=== PATIENT | male | born 1955 | race Caucasian/White ===

== ENCOUNTER → 2017-11-20 | Outpatient (CLI) | payer MEDICAID ==
[~2017-11-20] MED LIST: ASP81CT PO; AZIT-21 PO; BPR150TCR PO; BUDE6HFA IH; BUSP10TA95 GT; FINA5TAB6 PO; LISI10TA PO; PRED20TA PO; RT-ALBUINH IH; RT-ALBUTEROL SULF 2.5 MG/3 ML PRE-MIX VIAL INH ONE; RT-COMBINH IH; TERA5CAP10 PO; TRAM50TA2 PO; VNL75T PO
== END ==
LOC: RT 12:23
PROVIDERS: ATTEND Nurse Practitioner Family
DX: J44.1 Chronic obstructive pulmonary disease with (acute) exacerbation (principal); R09.02 Hypoxemia; J30.9 Allergic rhinitis, unspecified; R06.02 Shortness of breath
CPT/HCPCS: 94060; 94726; 94729

== ENCOUNTER 2019-01-31 15:43 | Inpatient (IN) | payer MEDICAID ==
[2019-01-31] VITALS (11 sets, daily range): BP systolic 85–159; BP diastolic 50–89
[~2019-01-31] VITALS: Ht 167.6 cm; Wt 61.2 kg
[~2019-01-31 15:43] MED LIST changes: -RT-ALBUTEROL SULF 2.5 MG/3 ML PRE-MIX VIAL INH ONE
--- OUTSIDE RECORDS SUMMARY | 2019-01-31 16:02 | XMS REPORT ---
Author Author Migration, Doctor Organization [facility] Address Unknown Phone Unavailable Care Team Providers Care Farmer General Name Role Phone Migration, Doctor Unavailable Unavailable PROBLEMS Type Condition ICD9-CM Code [id number] Code Onset Dates Condition Status SNOMED Code Problem Chest pain, unspecified 786.50 Active 56783905 Problem Shortness of breath 786.05 Active 532857327 Problem Essential hypertension, benign 401.1 Active 9035811 Problem Unspecified infective otitis externa 380.10 Active 23906905 Problem Memory loss 780.93 Active 33180660 Problem Pain in joint, hand 719.44 Active 999874760 Problem Hypertrophy (benign) of prostate without urinary obstruction and other lower urinary tract symptoms [LUTS] 600.00 Active 341771600 Problem Chronic airway obstruction, not elsewhere classified 496 Active 08446602 ALLERGIES No Information ENCOUNTERS Encounter Location Date Diagnosis [facility] [address] [address] Dec, Skin lesion 709.9 [facility] [id number] [place] [address] Dec, [facility] [id number] [place] [address] Oct, [facility] [id number] [place] [address] Oct, [facility] [id number] [place] [address] Mar, [facility] [address] [address] Dec, [facility] [id number] [place] [address] November, [facility] [address] [address] November, [facility] [address] [id number] [place] [address] Oct, [facility] [address] [id number] [place] [address] Oct, [facility] [address] [facility] [id number] [place] [address] Oct, [facility] [address] [id number] [place] [address] Sep, [facility] [address] [id number] [place] [address] Sep, [facility] [address] [id number] [place] [address] Sep, [facility] [address] [id number] [place] [address] Sep, [facility] [address] [id number] [place] [address] Aug, [facility] [address] [id number] [place] [address] Jul, [facility] [place] [facility] [address] [id number] [place] [address] Jul, [facility] [address] [id number], [place] [address] Jul, [facility] [place] [facility] [address] [id number], [place] [address] Jun, [facility] [place] [facility] [address] [id number] [place] [address] Jun, [facility] [place] [facility] [address] [facility] [id number] [place] [address] May, [facility] [place] [facility] [address] [facility] [id number] [place] [address] May, [facility] [place] [facility] [address] [id number] [place] [address] 27 May, 2012 [facility] [address] [id number] [place] [address] 27 May, 2012 [facility] [address] [id number] [place] [address] 27 May, 2012 [facility] [address] [id number] [place] [address] May, [facility] [address] [id number] [place] [address] May, [facility] [address] [id number] [place] [address] May, [facility] [address] [facility] [id number] [place] [address] May, [facility] [address] [facility] [id number] [place] [address] 14 May, 2012 [facility] [address] [facility] [id number] [place] [address] 14 May, 2012 [facility] [address] [facility] [id number] [place] [address] 13 May, 2012 [facility] [address] [facility] [id number], [place] [address] 13 May, 2012 [facility] [address] [facility] [id number] [place] [address] 10 May, 2012 [facility] [address] [facility] [id number], [place] [address] 10 May, 2012 [facility] [address] [facility] [id number], [place] [address] 10 May, 2012 [facility] [address] [facility] [id number], [place] [address] 10 May, 2012 [facility] [address] [facility] [id number], [place] [address] 14 Mar, 2012 IMMUNIZATIONS No Known Immunizations SOCIAL HISTORY Never Assessed REASON FOR VISIT [facility] [place]AN OF CARE VITAL SIGNS MEDICATIONS No Known Medications RESULTS No Results PROCEDURES No Known procedures INSTRUCTIONS MEDICATIONS ADMINISTERED No Known Medications MEDICAL (GENERAL) HISTORY Type Description Date Medical History hypertension Medical History chronic obstructive pulmonary disease (COPD) Medical History hernia Medical History emphysema Medical History pre-diabetic Medical History cardia Medical History history melanoma Surgical History Coronary angiography-neg 09/2011
--- OUTSIDE RECORDS SUMMARY | 2019-01-31 16:02 | XMS REPORT ---
Author Author Migration, Doctor Organization [facility] Address Unknown Phone Unavailable Care Team Providers Care Crew Caller Name Role Phone Migration, Doctor Unavailable Unavailable PROBLEMS Type Condition ICD9-CM Code [id number]-[id number] Code Onset Dates Condition Status SNOMED Code Problem Chest pain, unspecified 786.50 Active 23051752 Problem Shortness of breath 786.05 Active 078449492 Problem Essential hypertension, benign 401.1 Active 7217289 Problem Unspecified infective otitis externa 380.10 Active 38544340 Problem Memory loss 780.93 Active 94980208 Problem Pain in joint, hand 719.44 Active 270700958 Problem Hypertrophy (benign) of prostate without urinary obstruction and other lower urinary tract symptoms [LUTS] 600.00 Active 442066065 Problem Chronic airway obstruction, not elsewhere classified 496 Active 95035980 ALLERGIES Substance Reaction Event Type Date Status Codeine Unknown Drug Allergy Oct, Active Latex Unknown Non Drug Allergy Oct, Active Penicillins Unknown Non Drug Allergy Oct, Active Ibuprofen Unknown Drug Allergy Oct, Active Morphine Unknown Drug Allergy Oct, Active ENCOUNTERS Encounter Location Date Diagnosis [facility] [id number] [place] [address] Dec, Skin lesion 709.9 [facility] [id number] [place] [address] Dec, [facility] [id number] [place] [address] Oct, [facility] [id number] [place] [address] Oct, [facility] [id number] [place] [address] Mar, [facility] [id number] [place] [address] Dec, [facility] [address] [id number] [place] [address] November, [facility] [address] [id number] [place] [address] November, [facility] [address] [id number] [place] [address] Oct, [facility] [address] [id number] [place] [address] Oct, [facility] [address] [id number] [place] [address] Oct, [facility] [address] [id number] [place] [address] Sep, [facility] [address] [id number] [place] [address] Sep, [facility] [address] [id number] [place] [address] Sep, [facility] [address] [id number] [place] [address] Sep, [facility] [address] [id number] [place] [address] Aug, [facility] [address] [id number] [place] [address] Jul, [facility] [address] [id number] [place] [address] Jul, [facility] [address] [id number] [place] [address] Jul, [facility] [place] [facility] [address] [id number] [place] [address] Jun, [facility] [place] [facility] [address] [id number] [place] [address] Jun, [facility] [address] [id number] [place] [address] May, [facility] [place] [facility] [address] [id number] [place] [address] May, [facility] [place] [facility] [address] [id number] [place] [address] May, [facility] [place] [facility] [address] [id number] [place] [address] May, [facility] [place] [facility] [address] [id number] [place] [address] May, [facility] [place] [facility] [address] [id number] [place] [address] May, [facility] [place] [facility] [address] [id number] [place] [address] May, [facility] [place] [facility] [address] [id number] [place] [address] May, [facility] [place] [facility] [address] [id number] [place] [address] May, [facility] [place] [facility] [address] [id number] [place] [address] 14 May, 2012 [facility] [place] [facility] [address] [id number] [place] [address] 14 May, 2012 [facility] [place] [facility] [address] [id number], [place] [address] 13 May, 2012 [facility] [place] [facility] [address] [id number], [place] [address] 13 May, 2012 [facility] [place] [facility] [address] [id number], [place] [address] 10 May, 2012 [facility] [place] [facility] [address] [id number], [place] [address] 10 May, 2012 [facility] [place] [facility] [address] [id number], [place] [address] 10 May, 2012 [facility] [place] [facility] [address] [facility] [id number] [place] [address] 10 May, 2012 [facility] [address] [facility] [id number] [place] [address] Mar, IMMUNIZATIONS No Known Immunizations SOCIAL HISTORY Never Assessed REASON FOR VISIT [facility] PLAN OF CARE VITAL SIGNS MEDICATIONS Medication Instructions Dosage Frequency Start Date End Date Duration Status Combivent 18-103 mcg/actuation 2 puffs by Inhalation route 4 times per day Oct, Active Guaifenesin 600 mg take 600 mg by Oral route every 12 hours Sep, Active Lisinopril 10 mg take 1 tablet by Oral route 1 time per day Take in am November, Active Omnicef 300 mg 2 capsule by Oral route 1 time per day for 10 day(s) November, Active Flonase 50 mcg/actuation 1 sprays by Nasal route 2 times per day in each nostril November, Active Doxycycline Hyclate 100 mg take 1 tablet by Oral route 2 times per day for 10 days Sep, Active PredniSONE 20 mg take 1 tablet by Oral route 2 times per day for 5 day(s) Sep, Active terazosin 5 mg take 1 capsule (5 mg) by oral route once daily at bedtime November, Active Lovastatin 20 mg take 1 tablet (20 mg) by oral route once daily with the evening meal Aug, Active Aspirin 81 mg take 1 tablet (81 mg) by oral route once daily Aug, Active Ofloxacin 0.3 % 3 drop by Otic route 2 times per day for 10 day(s) Jun, Active Effexor XR 75 mg 1 capsule by Oral route 1 time per day Jun, Active Wellbutrin SR 150 mg 1 Tablet 2 times per day Oct, Active RESULTS No Results PROCEDURES No Known procedures INSTRUCTIONS MEDICATIONS ADMINISTERED No Known Medications MEDICAL (GENERAL) HISTORY Type Description Date Medical History hypertension Medical History chronic obstructive pulmonary disease (COPD) Medical History hernia Medical History emphysema Medical History pre-diabetic Medical History cardia Medical History history melanoma Surgical History Coronary angiography-neg 09/2011
--- OUTSIDE RECORDS SUMMARY | 2019-01-31 16:02 | XMS REPORT ---
Author Author Migration, Doctor Organization [facility] Address Unknown Phone Unavailable Care Team Providers Care Registered Midwife Name Role Phone Migration, Doctor Unavailable Unavailable PROBLEMS Type Condition ICD9-CM Code [id number] Code Onset Dates Condition Status SNOMED Code Problem Chest pain, unspecified 786.50 Active 08409970 Problem Shortness of breath 786.05 Active 905867688 Problem Essential hypertension, benign 401.1 Active 5093398 Problem Unspecified infective otitis externa 380.10 Active 28349952 Problem Memory loss 780.93 Active 84876162 Problem Pain in joint, hand 719.44 Active 570232369 Problem Hypertrophy (benign) of prostate without urinary obstruction and other lower urinary tract symptoms [LUTS] 600.00 Active 001878414 Problem Chronic airway obstruction, not elsewhere classified 496 Active 81112472 ALLERGIES No Information ENCOUNTERS Encounter Location Date Diagnosis [facility] [address] [address] Dec, Skin lesion 709.9 [facility] [id number] [place] [address] Dec, [facility] [id number] [place] [address] Oct, [facility] [id number] [place] [address] Oct, [facility] [id number] [place] [address] Mar, [facility] [address] [address] Dec, [facility] [id number] [place] [address] November, [facility] [address] [address] November, [facility] [address] [id number] [place] [address] Oct, [facility] [address] [id number] [place] [address] Oct, [facility] [address] [facility] [id number] [place] [address] Oct, [facility] [address] [id number] [place] [address] Sep, [facility] [address] [id number] [place] [address] Sep, [facility] [address] [id number] [place] [address] Sep, [facility] [address] [id number] [place] [address] Sep, [facility] [address] [id number] [place] [address] Aug, [facility] [address] [id number] [place] [address] Jul, [facility] [place] [facility] [address] [id number] [place] [address] Jul, [facility] [address] [id number], [place] [address] Jul, [facility] [place] [facility] [address] [id number], [place] [address] Jun, [facility] [place] [facility] [address] [id number] [place] [address] Jun, [facility] [place] [facility] [address] [facility] [id number] [place] [address] May, [facility] [place] [facility] [address] [facility] [id number] [place] [address] May, [facility] [place] [facility] [address] [id number] [place] [address] 27 May, 2012 [facility] [address] [id number] [place] [address] 27 May, 2012 [facility] [address] [id number] [place] [address] 27 May, 2012 [facility] [address] [id number] [place] [address] May, [facility] [address] [id number] [place] [address] May, [facility] [address] [id number] [place] [address] May, [facility] [address] [facility] [id number] [place] [address] May, [facility] [address] [facility] [id number] [place] [address] 14 May, 2012 [facility] [address] [facility] [id number] [place] [address] 14 May, 2012 [facility] [address] [facility] [id number] [place] [address] 13 May, 2012 [facility] [address] [facility] [id number], [place] [address] 13 May, 2012 [facility] [address] [facility] [id number] [place] [address] 10 May, 2012 [facility] [address] [facility] [id number], [place] [address] 10 May, 2012 [facility] [address] [facility] [id number], [place] [address] 10 May, 2012 [facility] [address] [facility] [id number], [place] [address] 10 May, 2012 [facility] [address] [facility] [id number], [place] [address] 14 Mar, 2012 IMMUNIZATIONS No Known Immunizations SOCIAL HISTORY Never Assessed REASON FOR VISIT EMR-[facility] PLAN OF CARE VITAL SIGNS MEDICATIONS No [...]
--- OUTSIDE RECORDS SUMMARY | 2019-01-31 16:04 | XMS REPORT | Continuity of Care Document ---
Demographics Preferred Language Unknown Marital Status Unknown Gnosticism Affiliation Unknown Race Unknown Ethnic Group Unknown Author Organization Unknown Address Unknown Allergies Active Description Code Type Severity Reaction Onset Reported/Identified Relationship to Patient Clinical Status Yes CODEINE SULFATE SEVERE OTHER Yes CODEINE SULFATE SEVERE SEVERE Yes LATEX, NATURAL RUBBER UNKNOWN DERMATOLOGICAL - HIV Yes LATEX, NATURAL RUBBER UNKNOWN UNKNOWN Yes MORPHINE SEVERE OTHER Yes MORPHINE SEVERE SEVERE Yes NSAIDS (NON-STEROIDAL ANTI-INFLAMMATORY DRUG) UNKNOWN OTHER Yes NSAIDS (NON-STEROIDAL ANTI-INFLAMMATORY DRUG) UNKNOWN UNKNOWN Yes PENICILLINS UNKNOWN GI PROBLEMS - VOMITI Yes PENICILLINS UNKNOWN UNKNOWN Yes Codeine Drug Allergy N/A N/A 06/05/2012 Yes ibuprofen Drug Allergy N/A N/A 06/05/2012 Yes morphine Drug Allergy N/A N/A 06/05/2012 Yes Penicillins Drug Allergy N/A N/A 06/05/2012 Yes Codeine Drug Allergy 06/05/2012 Yes ibuprofen Drug Allergy 06/05/2012 Yes morphine Drug Allergy 06/05/2012 Yes Penicillins Drug Allergy 06/05/2012 Yes LATEX Drug Allergy 08/11/2012 Yes codeine [id number] Drug Allergy Unknown N/A 11/20/2017 Yes ibuprofen [id number] Drug Allergy Unknown N/A 11/20/2017 Yes latex [id number] Drug Allergy Unknown N/A 11/20/2017 Yes morphine morphine Unknown N/A 11/20/2017 Yes Penicillins [id number] Drug Allergy Unknown N/A 11/20/2017 Medications Medication Packaging Start Date Stop Date Route Dosage Sig TUBERCULIN PPD INJ 0 (TUBERSOL) ml 06/09/2017 06/09/2017 ONCE&1928 BUDESONIDE/FORMOTEROL INH 160 /4.5MCG (SYMBICORT) PUFF 06/09/2017 06/16/2017 BID&0800,2000 TERAZOSIN CAP 5 MG (HYTRIN) MG 06/09/2017 06/15/2017 QHS&2100 BUSPIRONE TAB 5 MG (BUSPAR) MG 06/09/2017 06/09/2017 ONCE&2200 CEFEPIME PREMIX BAG IV 1 GM/50CC (MAXIPIME PREMIX BAG) GM 06/09/2017 06/16/2017 Q8H&0600,1400,2200 ALBUTEROL INHALER MDI 8 GM (VENTOLIN HFA) PUFF(S) 06/09/2017 06/19/2017 PRN QID BUSPIRONE TAB 5 MG (BUSPAR) MG 06/10/2017 06/16/2017 BID&0800,2000 IPRATROPIUM/ALBUTEROL INH SOLN (DUO-NEB INH SOLN) MLS 06/10/2017 06/10/2017 ONCE&0800 PANTOPRAZOLE TAB 20 MG (PROTONIX) MG 06/10/2017 06/16/2017 Daily&0900 LISINOPRIL TAB 10 MG (ZESTRIL) MG 06/10/2017 06/16/2017 Daily&0900 FLUTICASONE NASAL INHALER MDI 50 MCG (FLONASE NOSE SPRAY) PUFF(S) 06/10/2017 06/16/2017 Daily&0900 LEVOFLOXACIN PREMIX IV BAG INJ 750 MG (LEVAQUIN PREMIX IV BAG) MG 06/10/2017 06/16/2017 Daily&0900 CETIRIZINE TAB 10 MG (ZYRTEC) MG 06/10/2017 06/16/2017 Daily&0900 TIOTROPIUM CAP 18 MCG (SPIRIVA) MCG 06/10/2017 06/16/2017 Daily&0900 IPRATROPIUM/ALBUTEROL INH SOLN (DUO-NEB INH SOLN) MLS 06/10/2017 06/14/2017 Q4H&0200,0600,1000,1400,1800,2200 IPRATROPIUM/ALBUTEROL INH SOLN (DUO-NEB INH SOLN) MLS 06/10/2017 06/17/2017 QID&0600,1100,1600,2100 NORMAL SALINE 250CC IV BAG INJ 0.9 % (NS 250CC IV BAG) ml 06/10/2017 06/12/2017 Daily&0900,2000 MONTELUKAST TAB 10 MG (SINGULAIR) MG 06/10/2017 06/16/2017 Daily&2100 BUSPIRONE TAB 5 MG (BUSPAR) MG 06/11/2017 06/17/2017 BID&08,1999 TERAZOSIN CAP 5 MG (HYTRIN) MG 06/11/2017 06/17/2017 BID&799,1999 BUDESONIDE/FORMOTEROL INH 160 /4.5MCG (SYMBICORT) PUFF 06/11/2017 06/17/2017 BID&08,1999 LISINOPRIL TAB 10 MG (ZESTRIL) MG 06/11/2017 06/17/2017 Daily&0900 FLUTICASONE NASAL INHALER MDI 50 MCG (FLONASE NOSE SPRAY) PUFF(S) 06/11/2017 06/17/2017 Daily&0900 CETIRIZINE TAB 10 MG (ZYRTEC) MG 06/11/2017 06/17/2017 Daily&0900 MONTELUKAST TAB 10 MG (SINGULAIR) MG 06/11/2017 06/17/2017 QHS&2100 CEFEPIME PREMIX BAG IV 1 GM/50CC (MAXIPIME PREMIX BAG) GM 06/12/2017 06/12/2017 ONCE&1400 CEFEPIME VIAL INJ 2 GM (MAXIPIME VIAL) GM 06/12/2017 06/22/2017 Q8H&0600,1400,2200 ACETAMINOPHEN ORAL TABLET 325mg(Tylenol) MG 06/13/2017 06/23/2017 PRN EVERY 4 Hour DIPHENHYDRAMINE CAP 25 MG (BENADRYL) MG 06/13/2017 06/16/2017 PRN QHS METHYLPREDNISOLONE VIAL INJ 125 MG/2CC (SOLU-MEDROL VIAL) MG 01/30/2019 01/30/2019 ONCE&0715 ALBUTEROL SVN 2.5MG/3CC LIQ 2.5 MG (PROVENTIL ELIGIO 2.5MG/3CC) MG 01/30/2019 01/30/2019 ONCE&0721 IPRATROPIUM/ALBUTEROL INH SOLN (DUO-NEB INH SOLN) MLS 01/31/2019 01/31/2019 ONCE&1047 METHYLPREDNISOLONE VIAL INJ 125 MG/2CC (SOLU-MEDROL VIAL) MG 01/31/2019 01/31/2019 ONCE&1047 LORAZEPAM 1CC VIAL INJ 2 MG/CC (ATIVAN VIAL) MG 01/31/2019 01/31/2019 ONCE&1101 NORMAL SALINE 250CC IV BAG INJ 0.9 % (NS 250CC IV BAG) ml 01/31/2019 01/31/2019 ONCE&1232 CEFEPIME PREMIX BAG IV 1 GM/50CC (MAXIPIME PREMIX BAG) GM 01/31/2019 01/31/2019 ONCE&1232 Problems Date Dx Coded Attending Type Code Diagnosis Diagnosed By 06/05/2012 NEREYDA OLIVAS DO 461.9 Sinusitis Acute 06/05/2012 RACHAEL OLIVAS DOA K 466.0 Bronchitis, Acute 06/05/2012 DEISY SERRANO NEREYDA K 496 CHRONIC AIRWAY OBSTRUCTION NOT ELSEWHERE CLASSIFIED 06/05/2012 DEISY SERRANO NEREYDA K 719.44 PAIN IN JOINT INVOLVING HAND 06/05/2012 RACHAEL OLIVAS DOA K V70.0 ROUTINE GENERAL MEDICAL EXAMINATION AT A HEALTH CARE FACILITY 06/05/2012 NEREYDA OLIVAS DO 461.9 Sinusitis Acute 06/05/2012 RACHAEL OLIVAS DOA K 466.0 Bronchitis, Acute 06/05/2012 RACHAEL OLIAVS DOA K 496 CHRONIC AIRWAY OBSTRUCTION NOT ELSEWHERE CLASSIFIED 06/05/2012 RACHAEL OLIVAS DOA K 719.44 PAIN IN JOINT INVOLVING HAND 06/05/2012 DEISY SERRANO NEREYDA K V70.0 ROUTINE GENERAL MEDICAL EXAMINATION AT A HEALTH CARE FACILITY 06/05/2012 RACHAEL OLIVAS DOA Adelina 461.9 Sinusitis Acute 06/05/2012 DEISY SERRANO NEREYDA K 466.0 Bronchitis, Acute 06/05/2012 DEISY SERRANO NEREYDA K 496 CHRONIC AIRWAY OBSTRUCTION NOT ELSEWHERE CLASSIFIED 06/05/2012 RACHAEL OLIVAS DOA K 719.44 PAIN IN JOINT INVOLVING HAND 06/05/2012 DEISY SERRANO NEREYDA K V70.0 ROUTINE GENERAL MEDICAL EXAMINATION AT A HEALTH CARE FACILITY 06/05/2012 RACHAEL OLIVAS DOA K 461.9 Sinusitis Acute 06/05/2012 DEISY SERRANO NEREYDA K 466.0 Bronchitis, Acute 06/05/2012 DEISY SERRANO NEREYDA K 496 CHRONIC AIRWAY OBSTRUCTION NOT ELSEWHERE CLASSIFIED 06/05/2012 DEISY SERRANO NEREYDA K 719.44 PAIN IN JOINT INVOLVING HAND 06/05/2012 DEISY SERRANO NEREYDA K V70.0 ROUTINE GENERAL MEDICAL EXAMINATION AT A HEALTH CARE FACILITY 06/05/2012 DUDLEY DAWSON APRN 461.9 Sinusitis Acute 06/05/2012 EUNICE STUARTNKANON M 466.0 Bronchitis, Acute 06/05/2012 EUNICE STUARTN, DUDLEY M 496 CHRONIC AIRWAY OBSTRUCTION NOT ELSEWHERE CLASSIFIED 06/05/2012 EUNICE STUARTN DUDLEY M 719.44 PAIN IN JOINT INVOLVING HAND 06/05/2012 DUDLEY DAWSON APRN V70.0 ROUTINE GENERAL MEDICAL EXAMINATION AT A HEALTH CARE FACILITY 06/05/2012 OLIVAS DO, NEREYDA K 461.9 Sinusitis Acute 06/05/2012 OLIVAS DO, NERYEDA K 466.0 Bronchitis, Acute 06/05/2012 OLIVAS DO, NEREYDA K 496 CHRONIC AIRWAY OBSTRUCTION NOT ELSEWHERE CLASSIFIED 06/05/2012 OLIVAS DO, NEREYDA K 719.44 PAIN IN JOINT INVOLVING HAND 06/05/2012 OLIVAS DO, NEREYDA K V70.0 ROUTINE GENERAL MEDICAL EXAMINATION AT A HEALTH CARE FACILITY 06/05/2012 461.9 Sinusitis Acute 06/05/2012 466.0 Bronchitis, Acute 06/05/2012 496 CHRONIC AIRWAY OBSTRUCTION NOT ELSEWHERE CLASSIFIED 06/05/2012 719.44 PAIN IN JOINT INVOLVING HAND 06/05/2012 V70.0 ROUTINE GENERAL MEDICAL EXAMINATION AT A HEALTH CARE FACILITY 06/05/2012 MADL EARLY CHILDHOOD EDUCATION WORKER, JAMIR L 461.9 Sinusitis Acute 06/05/2012 MADL EARLY CHILDHOOD EDUCATION WORKER, JAMIR L 466.0 Bronchitis, Acute 06/05/2012 MADL EARLY CHILDHOOD EDUCATION WORKER, JAMIR L 496 CHRONIC AIRWAY OBSTRUCTION NOT ELSEWHERE CLASSIFIED 06/05/2012 MADL EARLY CHILDHOOD EDUCATION WORKER, JAMIR L 719.44 PAIN IN JOINT INVOLVING HAND 06/05/2012 MADL EARLY CHILDHOOD EDUCATION WORKER, JMAIR L V70.0 ROUTINE GENERAL MEDICAL EXAMINATION AT A HEALTH CARE FACILITY 06/21/2012 OLIVAS DO, NEREYDA K 786.05 SHORTNESS OF BREATH 06/21/2012 OLIVAS DO, NEREYDA K 786.50 CHEST PAIN 06/21/2012 OLIVAS DO, NEREYDA K 786.05 Shortness Of Breath 06/21/2012 OLIVAS DO, ENREYDA K 786.50 CHEST PAIN 06/21/2012 OLIVAS DO, NEREYDA K 786.05 Shortness Of Breath 06/21/2012 OLIVAS DO, NEREYDA K 786.50 CHEST PAIN 06/21/2012 OLIVAS DO, NEREYDA K 786.05 Shortness Of Breath 06/21/2012 OLIVAS DO, NEREYDA K 786.50 CHEST PAIN 06/21/2012 DAWSON EARLY CHILDHOOD EDUCATION WORKER, DUDLEY M 786.05 Shortness Of Breath 06/21/2012 DAWSON EARLY CHILDHOOD EDUCATION WORKER, DUDLEY M 786.50 CHEST PAIN 06/21/2012 OLIVAS DO, NEREYDA K 786.05 Shortness Of Breath 06/21/2012 OLIVAS DO, NEREYDA K 786.50 Chest Pain 06/21/2012 786.05 Shortness Of Breath 06/21/2012 786.50 Chest Pain 06/21/2012 MADL EARLY CHILDHOOD EDUCATION WORKER, JAMIR L 786.05 Shortness Of Breath 06/21/2012 MADL EARLY CHILDHOOD EDUCATION WORKER, JAMIR L 786.50 Chest Pain 07/02/2012 OLIVAS DO, NEREYDA K 380.10 INFECTIVE OTITIS EXTERNA UNSPECIFIED 07/02/2012 OLIVAS DO, NEREYDA K 401.1 HYPERTENSION, BENIGN ESSENTIAL 07/02/2012 OLIVAS DO, NEREYDA K 600.00 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 AND OTHER LOWER URINARY TRACT SYMPTOMS (LUTS) 07/02/2012 OLIVAS DO, NEREYDA K 790.95 ELEVATED C-REACTIVE PROTEIN (CRP) 07/02/2012 OLIAVS DO, NEREYDA K 799.22 IRRITABILITY 07/02/2012 OLIVAS DO, NEREYDA K 380.10 INFECTIVE OTITIS EXTERNA UNSPECIFIED 07/02/2012 OLIVAS DO, NEREYDA K 401.1 HYPERTENSION, BENIGN ESSENTIAL 07/02/2012 OLIVAS DO, NEREYDA K 600.00 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 AND OTHER LOWER URINARY TRACT SYMPTOMS (LUTS) 07/02/2012 OLIVAS DO, NEREYDA K 790.95 ELEVATED C-REACTIVE PROTEIN (CRP) 07/02/2012 OLIVAS DO, NEREYDA K 799.22 IRRITABILITY 07/02/2012 OLIVAS DO, NEREYDA K 380.10 INFECTIVE OTITIS EXTERNA UNSPECIFIED 07/02/2012 OLIVAS DO, NEREYDA K 401.1 HYPERTENSION, BENIGN ESSENTIAL 07/02/2012 OLIVAS DO, NEREYDA K 600.00 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 AND OTHER LOWER URINARY TRACT SYMPTOMS (LUTS) 07/02/2012 OLIVAS DO, NEREYDA K 790.95 ELEVATED C-REACTIVE PROTEIN (CRP) 07/02/2012 OLIVAS DO, NEREYDA K 799.22 IRRITABILITY 07/02/2012 DUDLEY DAWSON APRN M 380.10 INFECTIVE OTITIS EXTERNA UNSPECIFIED 07/02/2012 DUDLEY DAWSON APRN 401.1 HYPERTENSION, BENIGN ESSENTIAL 07/02/2012 DUDLEY DAWSON APRN 600.00 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 AND OTHER LOWER URINARY TRACT SYMPTOMS (LUTS) 07/02/2012 EUNICE STUARTGema DUDLEY M 790.95 ELEVATED C-REACTIVE PROTEIN (CRP) 07/02/2012 DUDLEY DAWSON APRN Anton 799.22 IRRITABILITY 07/02/2012 RACHAEL OLIVAS DOA K 380.10 Infective Otitis Externa Unspecified 07/02/2012 RACHAEL OLIVAS DOA K 401.1 HYPERTENSION, BENIGN ESSENTIAL 07/02/2012 RACHAEL OLIVAS DOA K 600.00 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1 HYPERTENSION, BENIGN ESSENTIAL 07/02/2012 CHRISTOPH STUARTNTINOA L 600.00 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 AND OTHER LOWER URINARY TRACT SYMPTOMS (LUTS) 07/02/2012 CHRISTOPH STUARTGema JAMIR L 790.95 ELEVATED C-REACTIVE PROTEIN (CRP) 07/02/2012 APRYL HAWTHORNE APRNNYA L 799.22 IRRITABILITY 09/10/2012 Ot 401.9 HYPERTENSION NOS 09/10/2012 Ot 496 CHR AIRWAY OBSTRUCT NEC 09/10/2012 Ot 600.00 HYPERTROPHY (BENIGN) OF PROSTATE W/O URI 09/10/2012 Ot 786.59 CHEST PAIN NEC 09/10/2012 Ot 790.95 ELEVATED C-REACTIVE PROTEIN (CRP) 09/10/2012 Ot 794.30 ABN CARDIOVASC STUDY NOS 09/10/2012 Ot V58.69 OTH MED,LT,CURRENT USE 10/07/2012 DEISY NEREYDA SERRANO K 703.0 NAIL INGROWN 10/07/2012 DUDLEY DAWSON APRN 703.0 NAIL INGROWN 10/07/2012 DEISY SERRANONEREYDA K 703.0 NAIL INGROWN 10/07/2012 703.0 NAIL INGROWN 10/07/2012 CHRISTOPH STUARTN, JAMIR L 703.0 NAIL INGROWN 10/22/2012 DUDLEY DAWSON APRN 466.0 BRONCHITIS, ACUTE 10/22/2012 NEREYDA OLIVAS DO K 466.0 Bronchitis, Acute 10/22/2012 466.0 Bronchitis, Acute 10/22/2012 MADL EARLY CHILDHOOD EDUCATION WORKER, JAMIR L 466.0 Bronchitis, Acute 11/01/2012 OLIVAS NEREYDA SERRANO K 780.93 MEMORY LOSS 11/01/2012 780.93 MEMORY LOSS 11/01/2012 MADL EARLY CHILDHOOD EDUCATION WORKER, JAMIR L 780.93 MEMORY LOSS 12/03/2012 381.81 EUSTACHIAN TUBE DYSFUNCTION 12/03/2012 388.70 OTALGIA 12/03/2012 MADL EARLY CHILDHOOD EDUCATION WORKER, JAMIR L 381.81 EUSTACHIAN TUBE DYSFUNCTION 12/03/2012 MADL EARLY CHILDHOOD EDUCATION WORKER, JAMIR L 388.70 OTALGIA 11/14/2014 MADL EARLY CHILDHOOD EDUCATION WORKER, JAMIR L 709.9 UNSPECIFIED DISORDER OF SKIN AND SUBCUTANEOUS TISSUE 12/19/2014 JASMYNE MARTIN, RADHA Ward Ot 491.22 OBSTRUCTIVE CHRONIC BRONCHITIS WITH ACUT 12/19/2014 RADHA MEDLEY MD Ot 492.0 EMPHYSEMATOUS BLEB 12/19/2014 RADHA MEDLEY MD Ot 786.05 SHORTNESS OF BREATH 02/14/2015 ELSA MATTHEW EARLY CHILDHOOD EDUCATION WORKER Ot 477.9 02/14/2015 ELSA MATTHEW EARLY CHILDHOOD EDUCATION WORKER Ot 493.22 03/13/2015 ELSA MATTHEW EARLY CHILDHOOD EDUCATION WORKER Ot 477.9 03/13/2015 ELSA MATTHEW EARLY CHILDHOOD EDUCATION WORKER Ot 493.22 04/25/2015 ELSA MATTHEW EARLY CHILDHOOD EDUCATION WORKER Ot 477.9 ALLERGIC RHINITIS NOS 04/25/2015 ELSA MATTHEW EARLY CHILDHOOD EDUCATION WORKER Ot 493.22 CHRONIC OBSTRUCTIVE ASTHMA, W (ACUTE) EX 06/09/2017 CALI, RONY A 482.1 PNEUMONIA DUE TO PSEUDOMONAS 06/09/2017 RONY CALI A J15.1 PNEUMONIA DUE TO PSEUDOMONAS 06/09/2017 RONY CALI A 482.1 PNEUMONIA DUE TO PSEUDOMONAS 06/09/2017 CALIRONY ZAMAN A J15.1 PNEUMONIA DUE TO PSEUDOMONAS 06/10/2017 RONY CALI A 486 PNEUMONIA, ORGANISM UNSPECIFIED 06/10/2017 CALIRONY ZAMAN A J18.1 LOBAR PNEUMONIA, UNSPECIFIED ORGANISM 06/10/2017 RONY CALI A 486 PNEUMONIA, ORGANISM UNSPECIFIED 06/10/2017 RONY CALI W 496 CHRONIC AIRWAY OBSTRUCTION, NOT ELSEWHERE CLASSIFIED 06/10/2017 RONY CALI A J18.1 LOBAR PNEUMONIA, UNSPECIFIED ORGANISM 06/10/2017 RONY CALI J44.9 CHRONIC OBSTRUCTIVE PULMONARY DISEASE, UNSPECIFIED 06/11/2017 RONY CALI A 486 PNEUMONIA, ORGANISM UNSPECIFIED 06/11/2017 RONY CALI W 496 CHRONIC AIRWAY OBSTRUCTION, NOT ELSEWHERE CLASSIFIED 06/11/2017 RONY CALI A J18.1 LOBAR PNEUMONIA, UNSPECIFIED ORGANISM 06/11/2017 RONY CALI J44.9 CHRONIC OBSTRUCTIVE PULMONARY DISEASE, UNSPECIFIED 06/13/2017 RONY CALI W 401.0 06/13/2017 RONY CALI A 486 PNEUMONIA, ORGANISM UNSPECIFIED 06/13/2017 RONY CALI W 496 CHRONIC AIRWAY OBSTRUCTION, NOT ELSEWHERE CLASSIFIED 06/13/2017 RONY CALI W I10 ESSENTIAL (PRIMARY) HYPERTENSION 06/13/2017 RONY CALI A J18.1 LOBAR PNEUMONIA, UNSPECIFIED ORGANISM 06/13/2017 RONY CALI J44.9 CHRONIC OBSTRUCTIVE PULMONARY DISEASE, UNSPECIFIED 06/13/2017 RONY CALI W V15.82 PERSONAL HISTORY OF TOBACCO USE 06/13/2017 RONY CALI Z87.891 PERSONAL HISTORY OF NICOTINE DEPENDENCE 06/17/2017 RONY CALI 482.1 PNEUMONIA DUE TO PSEUDOMONAS 06/17/2017 RONY CALI W 496 CHRONIC AIRWAY OBSTRUCTION, NOT ELSEWHERE CLASSIFIED 06/17/2017 RONY CALI J15.1 PNEUMONIA DUE TO PSEUDOMONAS 06/17/2017 RONY CALI J44.9 CHRONIC OBSTRUCTIVE PULMONARY DISEASE, UNSPECIFIED 06/17/2017 CALI RONY W 482.1 PNEUMONIA DUE TO PSEUDOMONAS 06/17/2017 CALI, RONY W 496 CHRONIC AIRWAY OBSTRUCTION, NOT ELSEWHERE CLASSIFIED 06/17/2017 CALI, RONY W J15.1 PNEUMONIA DUE TO PSEUDOMONAS 06/17/2017 CALI RONY W J44.9 CHRONIC OBSTRUCTIVE PULMONARY DISEASE, UNSPECIFIED 06/22/2017 CALI RONY W 482.1 PNEUMONIA DUE TO PSEUDOMONAS 06/22/2017 CALI, RONY W 496 CHRONIC AIRWAY OBSTRUCTION, NOT ELSEWHERE CLASSIFIED 06/22/2017 CALI RONY W J15.1 PNEUMONIA DUE TO PSEUDOMONAS 06/22/2017 CALI, RONY W J44.9 CHRONIC OBSTRUCTIVE PULMONARY DISEASE, UNSPECIFIED 06/22/2017 CALI, RONY W 482.1 PNEUMONIA DUE TO PSEUDOMONAS 06/22/2017 CALI, RONY W 496 CHRONIC AIRWAY OBSTRUCTION, NOT ELSEWHERE CLASSIFIED 06/22/2017 CALI, RONY W J15.1 PNEUMONIA DUE TO PSEUDOMONAS 06/22/2017 CALI, RONY W J44.9 CHRONIC OBSTRUCTIVE PULMONARY DISEASE, UNSPECIFIED 07/17/2017 CALI, RONY A 482.1 PNEUMONIA DUE TO PSEUDOMONAS 07/17/2017 CALI, RONY W 496 CHRONIC AIRWAY OBSTRUCTION, NOT ELSEWHERE CLASSIFIED 07/17/2017 CALI, RONY A J15.1 PNEUMONIA DUE TO PSEUDOMONAS 07/17/2017 CALI, RONY W J44.9 CHRONIC OBSTRUCTIVE PULMONARY DISEASE, UNSPECIFIED 07/17/2017 CALI, RONY A 482.1 PNEUMONIA DUE TO PSEUDOMONAS 07/17/2017 CALI, RONY W 496 CHRONIC AIRWAY OBSTRUCTION, NOT ELSEWHERE CLASSIFIED 07/17/2017 CALI, RONY A J15.1 PNEUMONIA DUE TO PSEUDOMONAS 07/17/2017 CALI, RONY W J44.9 CHRONIC OBSTRUCTIVE PULMONARY DISEASE, UNSPECIFIED 07/17/2017 CALI, RONY A 482.1 PNEUMONIA DUE TO PSEUDOMONAS 07/17/2017 CALI, RONY W 496 CHRONIC AIRWAY OBSTRUCTION, NOT ELSEWHERE CLASSIFIED 07/17/2017 CALI, RONY A J15.1 PNEUMONIA DUE TO PSEUDOMONAS 07/17/2017 CALI, RONY W J44.9 CHRONIC OBSTRUCTIVE PULMONARY DISEASE, UNSPECIFIED 11/09/2017 Christen Walton W 031.0 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 11/09/2017 Christen Walton A31.0 PULMONARY MYCOBACTERIAL INFECTION 11/09/2017 Christen Walton W 031.0 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 11/09/2017 Christen Walton A31.0 PULMONARY MYCOBACTERIAL INFECTION 11/18/2017 Ot 414.9 CHR ISCHEMIC HRT DIS NOS 11/18/2017 Ot 786.50 CHEST PAIN NOS 11/18/2017 Ot 397.0 TRICUSPID VALVE DISEASE 11/18/2017 Ot 416.8 CHR PULMON HEART DIS NEC 11/18/2017 Ot 424.0 MITRAL VALVE DISORDER 11/18/2017 Ot 786.50 CHEST PAIN NOS 11/18/2017 SUKHI MATTHEWINE E EARLY CHILDHOOD EDUCATION WORKER Ot 477.9 ALLERGIC RHINITIS NOS 11/18/2017 SUKHI MATTHEWINE E EARLY CHILDHOOD EDUCATION WORKER Ot 493.22 CHRONIC OBSTRUCTIVE ASTHMA, W (ACUTE) EX 11/23/2017 SUKHI MATTHEWINE E EARLY CHILDHOOD EDUCATION WORKER Ot J30.9 ALLERGIC RHINITIS, UNSPECIFIED 11/23/2017 ELSA MATTHEW EARLY CHILDHOOD EDUCATION WORKER Ot J44.1 CHRONIC OBSTRUCTIVE PULMONARY DISEASE W 11/23/2017 ELSA MATTHEW EARLY CHILDHOOD EDUCATION WORKER Ot R06.02 SHORTNESS OF BREATH 11/23/2017 SUKHI MATTHEWINE E EARLY CHILDHOOD EDUCATION WORKER Ot R09.02 HYPOXEMIA 12/04/2017 SUKHI MATTHEWINE Shabbir EARLY CHILDHOOD EDUCATION WORKER Ot J30.9 ALLERGIC RHINITIS, UNSPECIFIED 12/04/2017 ELSA MATTHEW EARLY CHILDHOOD EDUCATION WORKER Ot J44.1 CHRONIC OBSTRUCTIVE PULMONARY DISEASE W 12/04/2017 ELSA MATTHEW EARLY CHILDHOOD EDUCATION WORKER Ot R06.02 SHORTNESS OF BREATH 12/04/2017 ELSA MATTHEW EARLY CHILDHOOD EDUCATION WORKER Ot R09.02 HYPOXEMIA 01/13/2018 RONY CALI 031.9 UNSPECIFIED DISEASES DUE TO MYCOBACTERIA 01/13/2018 RONY CALI A31.8 OTHER MYCOBACTERIAL INFECTIONS 01/13/2018 RONY CALI V70.0 ROUTINE GENERAL MEDICAL EXAMINATION AT A HEALTH CARE FACILITY 01/13/2018 RONY CALI Z00.01 ENCOUNTER FOR GENERAL ADULT MEDICAL EXAMINATION WITH ABNORMAL FINDINGS 01/13/2018 RONY CALI 031.9 UNSPECIFIED DISEASES DUE TO MYCOBACTERIA 01/13/2018 RONY CALI A31.8 OTHER MYCOBACTERIAL INFECTIONS 01/13/2018 RONY CALI V70.0 ROUTINE GENERAL MEDICAL EXAMINATION AT A HEALTH CARE FACILITY 01/13/2018 RONY CALI Z00.01 ENCOUNTER FOR GENERAL ADULT MEDICAL EXAMINATION WITH ABNORMAL FINDINGS 01/13/2018 RONY CALI 031.9 UNSPECIFIED DISEASES DUE TO MYCOBACTERIA 01/13/2018 RONY CALI A31.8 OTHER MYCOBACTERIAL INFECTIONS 01/13/2018 RONY CALI V70.0 ROUTINE GENERAL MEDICAL EXAMINATION AT A HEALTH CARE FACILITY 01/13/2018 RONY CALI Z00.01 ENCOUNTER FOR GENERAL ADULT MEDICAL EXAMINATION WITH ABNORMAL FINDINGS Procedures Code Description Performed By Performed On ORTHO ADOLFO BREWER 06/05/2012 [id number] ROUTINE VENIPUNCTURE 06/08/2012 39061 CBC 06/08/2012 21412 LIPID PANEL 06/08/2012 30342 CMP 06/08/2012 [id number] GFR CALC (RESULT ONLY) 06/08/2012 18065 TSH 06/09/2012 08274 XRAY CHEST 2 VIEW 06/09/2012 19134 OXIMETRY 06/21/2012 80330 ROUTINE VENIPUNCTURE 06/22/2012 64525 BNP 06/22/2012 62367 CRP HS (CARDIO) 06/22/2012 GEOVANNY ARLYN [place] 07/14/2012 55505 EXERCISE STRESS TEST 08/29/2012 02338 ECHO 2D 08/29/2012 97271 CMP 10/08/2012 51234 LIPID PANEL 10/08/2012 75162 CBC 10/08/2012 88101 CRP HS (CARDIO) 10/08/2012 79737 ROUTINE VENIPUNCTURE 11/14/2014 42402 XRAY HAND MARU 2 VIEWS 11/14/2014 94228 CBC 11/14/2014 [id number] GFR CALC (RESULT ONLY) 11/14/2014 64165 CMP 11/14/2014 92419 LIPID PANEL 11/14/2014 70366 TSH 11/14/2014 68562 RA FACTOR 11/15/2014 Results Test Result Range Comprehensive Metabolic Panel - 08/29/16 08:20 Albumin 4.3 g/dL 3.6-5.1 ALP 95 U/L 35-130 ALT 10 U/L 6-45 Anion Gap 15 6-14 AST 15 U/L 2-40 BUN 14 mg/dL 5-25 Calcium 9.6 mg/dL 8.3-10.4 Chloride 108 mmol/L 95-114 CO2 24 mEq/L 22-33 Creat 0.87 mg/dL 0.50-1.50 eGFR 89 mL/min/1.73m2 >59 Globulin 2.5 g/dL 2.3-3.5 Glucose 87 mg/dL 70-110 Osmo 293 280-295 Potassium 4.9 mmol/L 3.5-5.3 Sodium 142 mmol/L 134-148 TBil 0.5 mg/dL 0.2-1.2 TP 6.8 g/dL 6.0-8.3 BMP - 02/05/17 08:30 Anion Gap 16 6-14 BUN 18 mg/dL 5-25 Calcium 9.5 mg/dL 8.3-10.4 Chloride 105 mmol/L 95-114 CO2 25 mEq/L 22-33 Creat 0.75 mg/dL 0.50-1.50 eGFR 106 mL/min/1.73m2 >59 Glucose 89 mg/dL 70-110 Osmo 292 280-295 Potassium 4.5 mmol/L 3.5-5.3 Sodium 141 mmol/L 134-148 Comprehensive Metabolic Panel - 06/09/17 19:28 Albumin 3.3 g/dL 3.6-5.1 ALP 243 U/L 35-130 ALT 22 U/L 6-45 Anion Gap 17 6-14 AST 14 U/L 2-40 BUN 16 mg/dL 5-25 Calcium 8.8 mg/dL 8.3-10.4 Chloride 104 mmol/L 95-114 CO2 20 mEq/L 22-33 Creat 0.71 mg/dL 0.50-1.50 eGFR 113 mL/min/1.73m2 >59 Globulin 3.0 g/dL 2.3-3.5 Glucose 134 mg/dL 70-110 Osmo 288 280-295 Potassium 3.4 mmol/L 3.5-5.3 Sodium 138 mmol/L 134-148 TBil 0.6 mg/dL 0.2-1.2 TP 6.3 g/dL 6.0-8.3 Blood Culture - 06/09/17 19:28 PRELIM CULTURE RESULTS Blood Culture Negative, No Growth Day 1 FINAL CULTURE RESULTS Blood Culture Negative, No Growth Day 5 MEDIA PLATED Blood Culture Media Position C45 CULTURE SOURCE LEFT ARM IV START Blood Culture - 06/09/17 20:36 PRELIM CULTURE RESULTS Blood Culture Negative, No Growth Day 1 FINAL CULTURE RESULTS Blood Culture Negative, No Growth Day 5 MEDIA PLATED Blood Culture Media Position C50 CULTURE SOURCE RIGHT ARM Sputum Culture - 06/09/17 22:30 PRELIM CULTURE RESULTS Abundant Gram Positive Mixed Ariadna Further Testing Pending [id number] Gram Negative DANIELE / ID to Follow FINAL CULTURE RESULTS Further testing pending at [id number] final report from [facility] MEDIA PLATED Setup at 22:59 on 06/09/2017 Sensi - 06/09/17 22:30 FINAL CULTURE RESULTS Pseudomonas aeruginosa (Isolate 1) Ampicillin/Sulbactam >16/8 Ampicillin >16 Amoxicillin/K Clavulanate >16/8 Ceftriaxone >32 Ciprofloxacin <=1 Nitrofurantoin >64 Gentamicin <=4 Levofloxacin <=2 Trimethoprim/ Sulfamethoxazole >2/38 Tetracycline >8 Amikacin <=16 Aztreonam <=8 Ceftazidime 4 Ceftazidime/K Clavulanate >2 Cephalothin >16 Cefotaxime 16 Cefotaxime/K Clavulanate >4 Cefoxitin >16 Cefazolin >16 Cefepime <=8 Cefuroxime >16 Ertapenem 4 Imipenem <=4 Meropenem <=4 Piperacillin/Tazobactam <=16 Piperacillin <=16 Tigecycline N/R Tobramycin <=4 Urinalysis - 06/09/17 23:25 Icotest N/A Negative Urine Volume Urine Volume Sufficient (10mL) Urine Yeast No Yeast present Urine-Appearance Clear Clear Urine-Bacteria Trace Urine-Bilirubin Negative Negative Urine-Blood Negative Negative Urine-Color Yellow Colorless-Lt. Yellow Urine-Epithelial Cells 0-5/HPF Urine-Glucose Negative Negative Urine-Ketones Negative Negative Urine-Leukocytes Negative Negative Urine-Mucus 1+ Urine-Nitrite Negative Negative Urine-Other Urine Saved if Culture Needed (48hrs from time of collection) Urine-pH 5.0 5-8.5 Urine-Protein Negative Negative Urine-RBC Rare/HPF Urine-Specific [place]ley 1.025 1.000-1.030 Urine-WBC Rare/HPF Urobilinogen 1.0 0.2-1.0 Acid Fast Smear+Culture - 06/10/17 05:58 ACID FAST CULTURE POSITIVE M AVIUM COMPLEX POSITIVE M GORDONAE TEST NOT PERFORMED. M [place] TEST NOT PERFORMED. M TUBERCULOSIS COMPLEX NEGATIVE OTHER: TEST NOT PERFORMED. AFB SPECIMEN PROCESSING CONCENTRATION ACID FAST SMEAR NEGATIVE Acid Fast Smear+Culture - 06/10/17 14:00 ACID FAST CULTURE Negative AFB SPECIMEN PROCESSING Concentration ACID FAST SMEAR Negative CBC with Auto Diff - 06/11/17 05:30 Baso% 0.20 % 0.00-2.50 Eos 0.0 K/uL 0.0-0.7 Eos% 0.0 % 0.0-7.0 Hct 33.7 % 42.0-52.0 Hgb 10.9 Result Verified by Repeat Analysis g/dL 14.0-17.0 Lym 1.85 K/uL 0.60-3.40 Lym% 8.3 % 10.0-50.0 MCH 28.9 pg 27.0-31.2 MCHC 32.3 g/dL 32.0-36.0 MCV 89.4 fL 80.0-97.0 [place]% 6.3 % 0.0-12.0 MPV 9.1 fL 7.4-10.0 Darryl% 85.2 % 37.0-80.0 Plt 382 K/uL 150-400 RBC 3.77 M/uL 4.20-5.40 RDW 15.6 % 11.6-14.8 WBC 22.20 Result Verified by Repeat Analysis K/uL 5.00-10.00 Darryl 18.89 K/uL 2.00-6.90 [place] 1.4 K/uL 0.0-0.9 Baso 0.1 K/uL 0.0-0.2 CBC with Auto Diff - 06/12/17 08:30 Baso% 0.20 % 0.00-2.50 Eos 0.1 K/uL 0.0-0.7 Eos% 0.2 % 0.0-7.0 Hct 36.4 % 42.0-52.0 Hgb 11.6 g/dL 14.0-17.0 Lym 1.81 K/uL 0.60-3.40 Lym% 7.9 % 10.0-50.0 MCH 28.9 pg 27.0-31.2 MCHC 31.9 g/dL 32.0-36.0 MCV 90.8 fL 80.0-97.0 [place]% 6.6 % 0.0-12.0 MPV 9.1 fL 7.4-10.0 Darryl% 85.1 % 37.0-80.0 Plt 456 K/uL 150-400 RBC 4.01 M/uL 4.20-5.40 RDW 15.6 % 11.6-14.8 WBC 23.01 K/uL 5.00-10.00 Darryl 19.60 K/uL 2.00-6.90 [place] 1.5 K/uL 0.0-0.9 Baso 0.0 K/uL 0.0-0.2 CBC with Auto Diff - 06/13/17 05:43 Baso% 0.30 % 0.00-2.50 Eos 0.1 K/uL 0.0-0.7 Eos% 0.3 % 0.0-7.0 Hct 34.9 % 42.0-52.0 Hgb 11.1 g/dL 14.0-17.0 Lym 2.03 K/uL 0.60-3.40 Lym% 10.9 % 10.0-50.0 MCH 28.5 pg 27.0-31.2 MCHC 31.8 g/dL 32.0-36.0 MCV 89.7 fL 80.0-97.0 [place]% 8.1 % 0.0-12.0 MPV 8.6 fL 7.4-10.0 Darryl% 80.4 % 37.0-80.0 Plt 444 K/uL 150-400 RBC 3.89 M/uL 4.20-5.40 RDW 15.4 % 11.6-14.8 WBC 18.70 K/uL 5.00-10.00 Darryl 15.04 K/uL 2.00-6.90 [place] 1.5 K/uL 0.0-0.9 Baso 0.1 K/uL 0.0-0.2 CBC with Auto Diff - 06/17/17 15:14 Baso% 0.70 % 0.00-2.50 Eos 0.1 K/uL 0.0-0.7 Eos% 0.9 % 0.0-7.0 Hct 36.2 % 42.0-52.0 Hgb 11.3 g/dL 14.0-17.0 Lym 2.48 K/uL 0.60-3.40 Lym% 19.5 % 10.0-50.0 MCH 28.3 pg 27.0-31.2 MCHC 31.2 g/dL 32.0-36.0 MCV 90.7 fL 80.0-97.0 [place]% 6.5 % 0.0-12.0 MPV 8.8 fL 7.4-10.0 Darryl% 72.4 % 37.0-80.0 Plt 569 K/uL 150-400 RBC 3.99 M/uL 4.20-5.40 RDW 15.6 % 11.6-14.8 WBC 12.69 K/uL 5.00-10.00 Darryl 9.18 K/uL 2.00-6.90 [place] 0.8 K/uL 0.0-0.9 Baso 0.1 K/uL 0.0-0.2 EKG - 10/02/17 09:26 EKG Complete Sputum Culture - 10/02/17 09:26 PRELIM CULTURE RESULTS Scant Gram Negative DANIELE / ID to Follow FINAL CULTURE RESULTS Scant Gram Positive Mixed Ariadna No Further Workup done [id number] Gram Negative Mixed Ariadna DANIELE/IDs Follow MEDIA PLATED Setup at 09:52 on 10/02/2017 Sensi - 10/02/17 09:26 FINAL CULTURE RESULTS Citrobacter braakii (Isolate 1) Ampicillin/Sulbactam <=8/4 Ampicillin >16 Amoxicillin/K Clavulanate >16/8 Ceftriaxone <=8 Ciprofloxacin <=1 Nitrofurantoin <=32 Gentamicin <=4 Levofloxacin <=2 Trimethoprim/ Sulfamethoxazole <=2/38 Tetracycline <=4 Amikacin <=16 Aztreonam <=8 Ceftazidime <=1 Ceftazidime/K Clavulanate <=0.25 Cephalothin >16 Cefotaxime <=2 Cefotaxime/K Clavulanate <=0.5 Cefoxitin >16 Cefazolin >16 Cefepime <=8 Cefuroxime <=4 Ertapenem <=1 Imipenem <=4 Meropenem <=4 Piperacillin/Tazobactam <=16 Piperacillin <=16 Tigecycline <=2 Tobramycin <=4 Sensi - 10/02/17 09:26 Ampicillin/Sulbactam >16/8 Ampicillin >16 Amoxicillin/K Clavulanate >16/8 Ceftriaxone 32 Ciprofloxacin <=1 Nitrofurantoin >64 Gentamicin <=4 Levofloxacin <=2 Trimethoprim/ Sulfamethoxazole >2/38 Tetracycline <=4 Amikacin <=16 Aztreonam 16 Ceftazidime 4 Ceftazidime/K Clavulanate 2 Cephalothin >16 Cefotaxime 32 Cefotaxime/K Clavulanate >4 Cefoxitin >16 Cefazolin >16 Cefepime <=8 Cefuroxime >16 Ertapenem >4 Imipenem <=4 Meropenem <=4 Piperacillin/Tazobactam <=16 Piperacillin <=16 Tigecycline N/R Tobramycin <=4 FINAL CULTURE RESULTS Pseudomonas fluorescens/putida (Isolate 2) Acid Fast Smear+Culture - 10/02/17 09:26 ACID FAST CULTURE NEGATIVE AFB SPECIMEN PROCESSING CONCENTRATION ACID FAST SMEAR NEGATIVE Sputum Culture - 11/09/17 08:15 PRELIM CULTURE RESULTS Moderate Gram Positive Mixed Ariadna FINAL CULTURE RESULTS Moderate Gram Positive Mixed Ariadna [id number] Pathogens Isolated [id number] Further Workup done MEDIA PLATED Setup at 15:00 on 11/09/2017 Acid Fast Smear+Culture W/Rflx - 11/09/17 08:15 ACID FAST CULTURE NEGATIVE AFB SPECIMEN PROCESSING CONCENTRATION ACID FAST SMEAR NEGATIVE Sputum Culture - 12/11/17 08:40 PRELIM CULTURE RESULTS Moderate Gram Positive Mixed Ariadna;[id number] Gram Negative DANIELE / ID to Follow MEDIA PLATED Setup at 0845 on 12/11/2017 Sensi - 12/11/17 08:40 FINAL CULTURE RESULTS Enterobacter cloacae (Isolate 1) Ampicillin/Sulbactam 16/8 Ampicillin >16 Amoxicillin/K Clavulanate >16/8 Ceftriaxone <=8 Ciprofloxacin <=1 Nitrofurantoin >64 Gentamicin <=4 Levofloxacin <=2 Trimethoprim/ Sulfamethoxazole <=2/38 Tetracycline <=4 Amikacin <=16 Aztreonam <=8 Ceftazidime <=1 Ceftazidime/K Clavulanate 2 Cephalothin >16 Cefotaxime <=2 Cefotaxime/K Clavulanate <=0.5 Cefoxitin >16 Cefazolin >16 Cefepime <=8 Cefuroxime 16 Ertapenem <=1 Imipenem <=4 Meropenem <=4 Piperacillin/Tazobactam <=16 Piperacillin <=16 Tigecycline <=2 Tobramycin <=4 Acid Fast Smear+Culture W/Rflx - 12/11/17 08:40 ACID FAST CULTURE NEGATIVE AFB SPECIMEN PROCESSING CONCENTRATION ACID FAST SMEAR NEGATIVE Lipid Panel - 01/13/18 16:42 C/HDL 4.5 3.7-6.7 Cholesterol 192 mg/dL 100-240 HDL 43 mg/dL 30-85 LDL-Calculated 131 mg/dL 0-100 Trig 90 mg/dL 35-160 VLDL 18 mg/dL 0-42 Sputum Culture - 02/10/18 09:03 PRELIM CULTURE RESULTS Scant Gram Positive Mixed Normal [id number] Gram Negative DANIELE/ID to Follow MEDIA PLATED Setup at 09:21 on 02/10/2018 Sensi - 02/10/18 09:03 FINAL CULTURE RESULTS Pseudomonas fluorescens/putida (Isolate 1) Ampicillin/Sulbactam >16/8 Ampicillin >16 Amoxicillin/K Clavulanate >16/8 Ceftriaxone <=8 Ciprofloxacin <=1 Nitrofurantoin >64 Gentamicin <=4 Levofloxacin <=2 Trimethoprim/ Sulfamethoxazole >2/38 Tetracycline 8 Amikacin <=16 Aztreonam >16 Ceftazidime 4 Ceftazidime/K Clavulanate >2 Cephalothin >16 Cefotaxime 32 Cefotaxime/K Clavulanate >4 Cefoxitin >16 Cefazolin >16 Cefepime <=8 Cefuroxime >16 Ertapenem >4 Imipenem <=4 Meropenem <=4 Piperacillin/Tazobactam <=16 Piperacillin 64 Tigecycline N/R Tobramycin <=4 Sputum Culture - 03/11/18 08:24 PRELIM CULTURE RESULTS Abundant Gram Negative Non-Lactose [employer] DANIELE / ID to Follow Further Testing Pending MEDIA PLATED Setup at 10:01 on 03/11/2018 Sensi - 03/11/18 08:24 FINAL CULTURE RESULTS Enterobacter cloacae (Isolate 1) Ampicillin/Sulbactam >16/8 Ampicillin >16 Amoxicillin/K Clavulanate >16/8 Ceftriaxone <=8 Ciprofloxacin <=1 Nitrofurantoin >64 Gentamicin <=4 Levofloxacin <=2 Trimethoprim/ Sulfamethoxazole >2/38 Tetracycline <=4 Amikacin <=16 Aztreonam 16 Ceftazidime 4 Ceftazidime/K Clavulanate 2 Cephalothin >16 Cefotaxime 16 Cefotaxime/K Clavulanate >4 Cefoxitin >16 Cefazolin >16 Cefepime <=8 Cefuroxime >16 Ertapenem 4 Imipenem <=4 Meropenem <=4 Piperacillin/Tazobactam <=16 Piperacillin 32 Tigecycline <=2 Tobramycin <=4 Acid Fast Smear+Culture W/Rflx - 03/11/18 08:24 ACID FAST CULTURE NEGATIVE AFB SPECIMEN PROCESSING CONCENTRATION ACID FAST SMEAR NEGATIVE Sputum Culture - 04/09/18 09:15 PRELIM CULTURE RESULTS Gram Negative Non-Lactose [employer] DANIELE / ID to Follow Sensi - 04/09/18 09:15 FINAL CULTURE RESULTS Pseudomonas fluorescens/putida (Isolate 1) Ampicillin/Sulbactam >16/8 Ampicillin >16 Amoxicillin/K Clavulanate >16/8 Ceftriaxone <=8 Ciprofloxacin <=1 Nitrofurantoin >64 Gentamicin <=4 Levofloxacin <=2 Trimethoprim/ Sulfamethoxazole >2/38 Tetracycline 8 Amikacin <=16 Aztreonam >16 Ceftazidime 4 Ceftazidime/K Clavulanate 2 Cephalothin >16 Cefotaxime 16 Cefotaxime/K Clavulanate >4 Cefoxitin >16 Cefazolin >16 Cefepime <=8 Cefuroxime >16 Ertapenem >4 Imipenem <=4 Meropenem 8 Piperacillin/Tazobactam <=16 Piperacillin >64 Tigecycline N/R Tobramycin <=4 Acid Fast Smear+Culture - 04/09/18 09:15 ACID FAST CULTURE NEGATIVE AFB SPECIMEN PROCESSING CONCENTRATION ACID FAST SMEAR NEGATIVE Sputum Culture - 05/12/18 11:04 PRELIM CULTURE RESULTS Moderate Gram Positive Mixed Ariadna [id number] Gram Negative DANIELE / ID to Follow MEDIA PLATED Setup at 11:51 on 05/12/2018 Sensi - 05/12/18 11:04 Ampicillin/Sulbactam >16/8 Ampicillin >16 Amoxicillin/K Clavulanate >16/8 Ceftriaxone <=8 Ciprofloxacin <=1 Nitrofurantoin >64 Gentamicin <=4 Levofloxacin <=2 Trimethoprim/ Sulfamethoxazole >2/38 Tetracycline 8 Amikacin <=16 Aztreonam >16 Ceftazidime 4 Ceftazidime/K Clavulanate >2 Cephalothin >16 Cefotaxime 16 Cefotaxime/K Clavulanate >4 Cefoxitin >16 Cefazolin >16 Cefepime <=8 Cefuroxime >16 Ertapenem >4 Imipenem <=4 Meropenem <=4 Piperacillin/Tazobactam <=16 Piperacillin 32 Tigecycline N/R Tobramycin <=4 FINAL CULTURE RESULTS Pseudomonas fluorescens/putida (Isolate 2) Sensi - 05/12/18 11:04 FINAL CULTURE RESULTS Enterobacter cloacae (Isolate 1) Ampicillin/Sulbactam >16/8 Ampicillin >16 Amoxicillin/K Clavulanate >16/8 Ceftriaxone <=8 Ciprofloxacin <=1 Nitrofurantoin >64 Gentamicin <=4 Levofloxacin <=2 Trimethoprim/ Sulfamethoxazole <=2/38 Tetracycline 8 Amikacin <=16 Aztreonam <=8 Ceftazidime <=1 Ceftazidime/K Clavulanate 2 Cephalothin >16 Cefotaxime <=2 Cefotaxime/K Clavulanate 4 Cefoxitin >16 Cefazolin >16 Cefepime <=8 Cefuroxime >16 Ertapenem <=1 Imipenem <=4 Meropenem <=4 Piperacillin/Tazobactam <=16 Piperacillin <=16 Tigecycline <=2 Tobramycin <=4 Acid Fast Smear+Culture - 05/12/18 11:04 ACID FAST CULTURE NEGATIVE AFB SPECIMEN PROCESSING CONCENTRATION ACID FAST SMEAR NEGATIVE Acid Fast Smear+Culture W/Rflx - 06/21/18 15:25 ACID FAST CULTURE NEGATIVE AFB SPECIMEN PROCESSING CONCENTRATION ACID FAST SMEAR NEGATIVE Sputum Culture - 07/13/18 14:58 PRELIM CULTURE RESULTS Moderate Gram Positive Mixed Normal Ariadna [id number] Gram Negative DANIELE / ID to Follow MEDIA PLATED Setup at 15:38 on 07/13/2018 Sensi - 07/13/18 14:58 FINAL CULTURE RESULTS Pseudomonas fluorescens/putida (Isolate 1) Ampicillin/Sulbactam >16/8 Ampicillin >16 Amoxicillin/K Clavulanate >16/8 Ceftriaxone <=8 Ciprofloxacin <=1 Nitrofurantoin >64 Gentamicin <=4 Levofloxacin <=2 Trimethoprim/ Sulfamethoxazole >2/38 Tetracycline 8 Amikacin <=16 Aztreonam >16 Ceftazidime 4 Ceftazidime/K Clavulanate 2 Cephalothin >16 Cefotaxime 16 Cefotaxime/K Clavulanate >4 Cefoxitin >16 Cefazolin >16 Cefepime <=8 Cefuroxime >16 Ertapenem >4 Imipenem <=4 Meropenem <=4 Piperacillin/Tazobactam <=16 Piperacillin 64 Tigecycline N/R Tobramycin <=4 Acid Fast Smear+Culture - 07/13/18 14:58 ACID FAST CULTURE NEGATIVE AFB SPECIMEN PROCESSING CONCENTRATION ACID FAST SMEAR NEGATIVE Comprehensive Metabolic Panel - 07/28/18 14:36 Albumin 4.7 g/dL 3.6-5.1 ALP 98 U/L 35-130 ALT 14 U/L 6-45 Anion Gap 14 6-14 AST 14 U/L 2-40 BUN 12 mg/dL 5-25 Calcium 9.7 mg/dL 8.3-10.4 Chloride 103 mmol/L 95-114 CO2 28 mEq/L 22-33 Creat 0.83 mg/dL 0.50-1.50 eGFR 94 mL/min/1.73m2 >59 Globulin 2.6 g/dL 2.3-3.5 Glucose 94 mg/dL 70-110 Osmo 289 280-295 Potassium 4.8 mmol/L 3.5-5.3 Sodium 140 mmol/L 134-148 TBil 0.3 mg/dL 0.2-1.2 TP 7.3 g/dL 6.0-8.3 Acid Fast Smear+Culture - 08/12/18 15:05 ACID FAST CULTURE NEGATIVE AFB SPECIMEN PROCESSING CONCENTRATION ACID FAST SMEAR NEGATIVE Acid Fast Smear+Culture W/[facility] 10/08/18 10:00 AFB Specimen Processing Concentration Acid Fast Smear Negative Acid Fast Culture Negative Acid Fast Smear+Culture W/[facility] 10/08/18 10:00 ACID FAST CULTURE NEGATIVE AFB SPECIMEN PROCESSING CONCENTRATION ACID FAST SMEAR NEGATIVE Acid [facility] - 11/09/18 14:31 AFB Specimen Processing Concentration Acid Fast Smear Negative Acid Fast Culture Negative Acid Fast Smear[facility] 11/09/18 14:31 ACID FAST CULTURE NEGATIVE AFB SPECIMEN PROCESSING CONCENTRATION ACID FAST SMEAR NEGATIVE PSA Yearly Screen - 01/24/19 09:05 PSA TOTAL 4.6 ng/mL 0.0-4.0 EKG - 01/30/19 07:13 EKG Complete Arterial Blood Gas - 01/31/19 10:42 Base 8.00 mmol/L 1.80-4.20 HCO3 33 mmol/L 20-31 O2 Sat 100 CPAP % 95-100 pCO2 52 mm/Hg 35-45 pH 7.41 7.35-7.45 PO2 442 mm/Hg 80-95 D-Dimer - 01/31/19 10:45 DDimer 84.00 ng/mL 21.00-229.00 Arterial Blood Gas - 01/31/19 11:05 Base 3.00 mmol/L 1.80-4.20 HCO3 29 mmol/L 20-31 O2 Sat 97 30% % 95-100 pCO2 52 mm/Hg 35-45 pH 7.35 7.35-7.45 PO2 100 mm/Hg 80-95 C-Reactive Protein - 01/31/19 11:05 C-Reactive Protein 0.22 mg/dL 0.00-0.50 Arterial Blood Gas - 01/31/19 12:18 Base -2.00 mmol/L 1.80-4.20 HCO3 24 mmol/L 20-31 O2 Sat 97 30% % 95-100 pCO2 48 mm/Hg 35-45 pH 7.32 7.35-7.45 PO2 100 mm/Hg 80-95 Lactic Acid - 01/31/19 12:50 Lactic Acid 6.2 mg/dL 4.5-19.8 Urinalysis - 01/31/19 13:04 Icotest N/A Negative Urine Volume Urine Volume Sufficient (10mL) Urine Yeast No Yeast present Urine-Appearance Clear Clear Urine-Bacteria Negative Urine-Bilirubin Negative Negative Urine-Blood 1+ Negative Urine-Color Yellow Colorless-Lt. Yellow Urine-Glucose Negative Negative Urine-Ketones Negative Negative Urine-Leukocytes Negative Negative Urine-Mucus 3+ Urine-Nitrite Negative Negative Urine-Other Urine Saved if Culture Needed (48hrs from time of collection) Urine-pH 5.5 5-8.5 Urine-Protein Negative Negative Urine-RBC 10-20/HPF Urine-Specific [place] 1.020 1.000-1.030 Urine-WBC 0-2/HPF Urobilinogen 0.2 E.U./dL 0.2-1.0 Arterial Blood Gas - 01/31/19 13:44 Base -1.00 mmol/L 1.80-4.20 HCO3 25 mmol/L 20-31 O2 Sat 96 30% % 95-100 pCO2 46 mm/Hg 35-45 pH 7.35 7.35-7.45 PO2 87 mm/Hg 80-95 Encounters ACCT No. Visit Date/Time Discharge Status Pt. Type Provider Facility Loc./Unit Complaint [id number] 11/26/2018 17:09:00 Document Registration [id number] 12/31/2018 10:17:00 Document Registration [id number] 11/14/2014 08:17:00 11/14/2014 23:59:59 CLS Outpatient CHRISTOPH OJEDATINOViktor Petersen [id number] 11/01/2012 13:53:00 11/01/2012 23:59:59 CLS Outpatient NEREYDA OLIVAS DO [id number] 10/22/2012 08:04:00 10/22/2012 23:59:59 CLS Outpatient DUDLEY DAWSON APRN [id number] 10/07/2012 08:55:00 10/07/2012 23:59:59 CLS Outpatient NEREYDA OLIVAS DO [id number] 08/25/2012 09:06:00 08/25/2012 23:59:59 CLS Outpatient NEREYDA OLIVAS DO [id number] 07/02/2012 15:33:00 07/02/2012 23:59:59 CLS Outpatient NEREYDA OLIVAS DO [id number] 06/05/2012 08:49:00 06/05/2012 23:59:59 CLS Outpatient NEREYDA OLIVAS DO [id number] 12/03/2012 08:18:00 Document Registration [id number] 11/20/2017 12:23:00 11/20/2017 23:59:59 CLS Outpatient ELSA MATTHEW [employer] [facility] RT COPD,DYSPNEA [id number] 11/09/2017 10:17:00 11/09/2017 23:59:59 CLS Preadmit ELSA MATTHEW [employer] [facility] RT J44.1 COPD [id number] 03/08/2015 14:46:00 04/25/2015 00:01:00 DIS Outpatient ELSA MATTHEW [employer] [facility] PULM COPD WHEEZING ALLERGIC RHINITIS [id number] 01/22/2015 15:17:00 01/22/2015 23:59:59 CLS Outpatient ELSA MATTHEW [employer] [facility] RT COPD WHEEZING [id number] 12/19/2014 12:41:00 12/19/2014 14:59:00 DIS Emergency JASMYNE MARTIN, RADHA Ward [facility] ER SOA [id number] 01/31/2019 15:43:00 ACT Inpatient UZIEL AGUILLON MD [facility] ICU RESP DISTRESS [id number] 09/10/2012 10:57:00 Document Registration [id number] 08/13/2012 11:37:00 Document Registration [id number] 08/12/2012 09:24:00 Document Registration [id number] 01/30/2019 07:04:00 01/30/2019 09:30:00 [id number]/24/2019 11:37:00 01/24/2019 23:59:00 DIS Outpatient RONY CALI [id number] 11/09/2018 14:30:00 11/09/2018 23:59:00 DIS Outpatient Christen Walton [id number] 10/08/2018 18:27:00 10/08/2018 23:59:00 DIS Outpatient Christen Walton [id number] 08/12/2018 15:04:00 08/12/2018 23:59:00 DIS Outpatient Christen Walton [id number] 07/28/2018 14:32:00 07/28/2018 23:59:00 DIS Outpatient RONY CALI [id number] 07/13/2018 14:58:00 07/13/2018 23:59:00 DIS Outpatient RONY CALI [id number] 06/21/2018 15:25:00 06/21/2018 23:59:00 DIS Outpatient RONY CALI [id number] 05/12/2018 10:28:00 05/12/2018 23:59:00 DIS Outpatient RONY CALI [id number] 04/09/2018 08:29:00 04/09/2018 23:59:00 DIS Outpatient RONY CALI [id number] 03/11/2018 08:19:00 03/11/2018 23:59:00 DIS Outpatient RONY CALI [id number] 02/10/2018 08:07:00 02/10/2018 23:59:00 DIS Outpatient RONY CALI [id number] 02/09/2018 08:50:00 02/09/2018 23:59:00 DIS Outpatient RONY CALI [id number] 01/13/2018 16:41:00 01/13/2018 23:59:00 DIS Outpatient RONY CALI [id number] 12/11/2017 07:55:00 12/11/2017 23:59:00 DIS Outpatient RONY CALI [id number] 11/09/2017 14:52:00 11/09/2017 23:59:00 DIS Outpatient Anton Christen [id number] 11/06/2017 08:25:00 11/06/2017 23:59:00 DIS Outpatient RONY CALI [id number] 10/02/2017 09:23:00 10/02/2017 23:59:00 DIS Outpatient RONY CALI [id number] 07/17/2017 08:46:00 07/17/2017 23:59:00 DIS Outpatient RONY CALI [id number] 06/22/2017 07:47:00 06/22/2017 23:59:00 DIS Outpatient RONY CALI [id number] 06/17/2017 15:14:00 06/17/2017 23:59:00 DIS Outpatient RONY CALI [id number] 06/09/2017 19:03:00 06/13/2017 10:25:00 DIS Inpatient VIRAJ [facility] MED-SURG [id number] 06/09/2017 18:03:00 06/09/2017 23:59:00 DIS Outpatient Christen Walton [id number] 06/09/2017 18:02:00 06/09/2017 23:59:00 DIS Outpatient Christen Walton [id number] 02/05/2017 09:20:00 02/05/2017 23:59:00 DIS Outpatient Marquez Monica [id number] 08/29/2016 10:31:00 08/29/2016 23:59:00 DIS Outpatient RONY CALI [id number] 01/31/2019 10:32:09 Document Registration [id number] 06/09/2017 19:39:37 Document Registration
[2019-01-31] MEDS ORDERED: methylPREDNISolone 125 MG (Solu-MEDROL) VIAL IVP NR (16:30)
--- NOTE | 2019-01-31 16:33 | Pulmonary Consultation ---
History of Present Illness History of Present Illness Date of Consultation 01/31/19 16:27 Time Seen by Provider: 16:28 Date of Admission History of Present Illness 63yo with hx of severe COPD [place] [facility] [place]. Pt was initially treated with BiPAP however he continued to have worsening respiratory failure. PT was intubated [place] [facility] [place] then transferred here for ICU care. Pt is currently sedated on ventilator and I am unable to obtain and information. All info obtained from chart. I am consulted for ICU management. Allergies and Home Medications Allergies Coded Allergies: Penicillins (Verified Allergy, Unknown, 11/20/17) codeine (Verified Allergy, Unknown, 11/20/17) ibuprofen (Verified Allergy, Unknown, 11/20/17) latex (Verified Allergy, Unknown, 11/20/17) Uncoded Allergies: morphine (Allergy, Unknown, 11/20/17) Home Medications Albuterol Sulfate 1 Puff Puff, 2 PUFF INH Q6H PRN for SHORTNESS OF BREATH, (Reported) Budesonide/Formoterol Fumarate 10.2 Gm Hfa.aer.ad, 2 PUFF INH BID, (Reported) Buspirone HCl 10 Mg Tablet, 10 MG PO BID, (Reported) Buspirone HCl 10 Mg Tablet, 10 MG PO 1200 PRN for ANXIETY, (Reported) Cefuroxime Axetil 250 Mg Tablet, 250 MG PO BID, (Reported) 5 DAY SUPPLY FILLED 01-30-19 Cetirizine HCl 10 Mg Tablet, 10 MG PO DAILY, (Reported) Fluticasone Propionate 16 Gm [place].susp, 2 SPRAYS NS DAILY, (Reported) Ipratropium/Albuterol Sulfate 3 Ml Ampul.neb, 3 ML NEB Q6H PRN for SHORTNESS OF BREATH, (Reported) Lisinopril 10 Mg Tablet, 10 MG PO DAILY, (Reported) Montelukast Sodium 10 Mg Tablet, 10 MG PO DAILY, (Reported) Prednisone 10 Mg Tab, 40 MG PO DAILY, (Reported) 4 DAY SUPPLY FILLED 01-30-19 TAKES 4 (10MG) TABLETS Terazosin HCl 5 Mg Capsule, 5 MG PO BID, (Reported) Tiotropium [place] 1 Inh Aerp, 1 CAP INH DAILY, (Reported) Past Hbmbkci-Wqfdyy-Axwomv Hx Immunizations Up To Date Date of Pneumonia Vaccine: Aug 27, 2011 Date of Influenza Vaccine: Apr 26, 2012 Seasonal Allergies Seasonal Allergies: Yes Past Medical History COPD Prostate Problems Arthritis Melanoma Review of Systems Time Seen by Provider: 16:30 Sepsis Event Evaluation Height, Weight, BMI Height: 5'6" Weight: 135lbs. oz. 61.723207nw; BMI Method:Stated Exam Exam Vital Signs Date Time Temp Pulse Resp B/P (MAP) Pulse Ox O2 Delivery O2 Flow Rate FiO2 01/31/19 15:55 84 18 99 35 Height & Weight Height: 5'6" Weight: 135lbs. oz. 61.663824nb; BMI Method:Stated General Appearance: Cachetic, Moderate Distress, Other (Pt sedated on vent) HEENT: PERRL/EOMI, Pharynx Normal Neck: Full Range of Motion, Supple, Other (ET tube in place ) Respiratory: Decreased Breath Sounds Cardiovascular: Regular Rate, Rhythm, No Edema, No JVD Capillary Refill: Less Than 3 Seconds Gastrointestinal: normal bowel sounds, non tender, soft, no organomegaly, no pulsatile mass Extremity: Normal Capillary Refill, Normal Inspection Skin: Normal Color, Warm/Dry Assessment/Plan Assessment/Plan Acute on chronic respiratory failure -Continue vent care -Propofol -Check ABG, labs and CXR COPDAE -SVNS Q 4 -Solumedrol 40mg IV Q 6 DVT/GI PPX -Lovenox -Protonix CAIT PANG DO Jan 31, 2019 16:33
[2019-01-31] MEDS ORDERED: CATHETER FLUSH 10 ML SYR IV PRN (17:00)
[2019-01-31 17:20] LABS: BASOPHILS % (AUTO) 0 % (0-10); EOSINOPHILS % (AUTO) 0 % (0-10); HEMATOCRIT 38 % (40-54); HEMOGLOBIN 12.6 G/DL (13.3-17.7); LYMPHOCYTES # (AUTO) 1.3 X 10^3 (1.0-4.0); LYMPHOCYTES % (AUTO) 14 % (12-44); MEAN CORPUSCULAR HEMOGLOBIN 31 PG (25-34); MEAN CORPUSCULAR HGB CONC 33 G/DL (32-36); MEAN CORPUSCULAR VOLUME 92 FL (80-99); MEAN PLATELET VOLUME 9.9 FL (7.4-10.4); MONOCYTES # (AUTO) 0.2 X 10^3 (0.0-1.0); MONOCYTES % (AUTO) 2 % (0-12); NEUTROPHILS % (AUTO) 85 % (42-75); PLATELET COUNT 268 10^3/uL (130-400); RED CELL DISTRIBUTION WIDTH 12.7 % (10.0-14.5); WHITE BLOOD COUNT 9.4 10^3/uL (4.3-11.0)
[2019-01-31 17:28] LABS: ABG OXYGEN SATURATION 90 % (94-100); ABG PCO2 46 MMHG (35-45); ABG PH 7.36 (7.37-7.43); ABG PO2 61 MMHG (79-93); ABG TCO2 26.2 MMOL/L (21.0-31.0); ALLENS TEST ART LINE; INSPIRED O2 21%; PATIENT TEMP 98.7
--- NOTE | 2019-01-31 17:40 | Diagnostic Imaging Report ---
INDICATION: Respiratory failure. COMPARISON STUDY: Chest from 09/10/2012. FINDINGS: Frontal view of the chest demonstrates interval development of severe COPD changes. The lungs are hyperinflated, especially on the right. Interstitial fibrosis is present, greatest in the right upper lung. Heart size and vascularity are normal. There are no pleural effusions. IMPRESSION: There is severe COPD. Dictated by: Dictated on workstation # [id number]
[2019-01-31] MEDS: PROPOFOL DRIP (ICU) 100 ML IV SCH (17:45)
[2019-01-31] MEDS: LACTATED RINGERS 1,000 ML IV SCH ×2 (17:45→23:19)
[2019-01-31 17:47] LABS: ALANINE AMINOTRANSFERASE 17 U/L (0-55); ALBUMIN 3.7 GM/DL (3.2-4.5); ALKALINE PHOSPHATASE 76 U/L (40-136); BILIRUBIN,TOTAL 0.3 MG/DL (0.1-1.0); BUN/CREATININE RATIO 22; CALCIUM 8.8 MG/DL (8.5-10.1); CARBON DIOXIDE 25 MMOL/L (21-32); CHLORIDE 109 MMOL/L (98-107); CREATININE SERUM 0.73 MG/DL (0.60-1.30); GFR ESTIMATED > 60; GLUCOSE 166 MG/DL (70-105); MAGNESIUM 1.7 MG/DL (1.8-2.4); PHOSPHORUS 3.7 MG/DL (2.3-4.7); POTASSIUM 4.1 MMOL/L (3.6-5.0); SODIUM 141 MMOL/L (135-145); TOTAL PROTEIN 5.8 GM/DL (6.4-8.2); TRIGLYCERIDES 65 MG/DL (<150)
[2019-01-31] MEDS: ENOXAPARIN 40 MG/0.4 ML (LOVENOX) SYR SC SCH (17:48)
[2019-01-31 18:15] LABS: BILIRUBIN,URINE NEGATIVE (NEGATIVE); CLARITY,URINE CLEAR; COLOR,URINE YELLOW; GLUCOSE, URINE (UA) NEGATIVE (NEGATIVE); KETONES,URINE NEGATIVE (NEGATIVE); LEUKOCYTE ESTERASE ,URINE 1+ (NEGATIVE); NITRITE,URINE NEGATIVE (NEGATIVE); PH,URINE 5 (5-9); PROTEIN,URINE 3+ (NEGATIVE); UROBILINOGEN,URINE NORMAL (NORMAL)
[2019-01-31 18:39] LABS: BACTERIA,URINE NEGATIVE /HPF; RBC,URINE 50-100 /HPF; WBC,URINE 0-2 /HPF
[2019-01-31 18:40] LABS: CALCIUM OXALATE CRYSTALS,UR FEW /LPF
[2019-01-31] MEDS: RT-ALBUTEROL/IPRATROPIUM 3 ML (DUONEB) VIAL INH SCH ×2 (18:59→22:45)
[2019-02-01] VITALS (29 sets, daily range): BP systolic 106–187; BP diastolic 59–126
[2019-02-01] MEDS: methylPREDNISolone 40 MG/ML (Solu-MEDROL) VIAL IV SCH ×4 (00:37→17:30)
--- NOTE | 2019-02-01 01:30 | NUR ---
This RN called EICU to report patient not syncing with ventilator. EICU doctor came on camera and discussed ventilator changes with this RN and Florinda, RT. Informed that patient gestures not feeling well and feeling short of breath. Reported patient on propofol as only sedation medication. Patient is alert and awake and nods that he feels better after ventilator changes. Will continue to monitor.
--- NOTE | 2019-02-01 02:15 | NUR ---
Patient calls this RN into room and points that is short of breath and can't breathe. EICU notified, this RN also stated blood pressure 170s/90s on ART line and patient does appear that he is pulling. EICU doctor uses camera and makes ventilator changes, keeping spontaneous with PEEP of 5 and pressure support of 8. Patient resting after changes and VSS. Will continue to monitor.
[2019-02-01] MEDS: RT-ALBUTEROL/IPRATROPIUM 3 ML (DUONEB) VIAL INH SCH ×5 (02:55→18:31)
[2019-02-01 03:53] LABS: BASOPHILS % (AUTO) 0 % (0-10); EOSINOPHILS % (AUTO) 0 % (0-10); HEMATOCRIT 38 % (40-54); HEMOGLOBIN 12.5 G/DL (13.3-17.7); LYMPHOCYTES # (AUTO) 1.1 X 10^3 (1.0-4.0); LYMPHOCYTES % (AUTO) 9 % (12-44); MEAN CORPUSCULAR HEMOGLOBIN 31 PG (25-34); MEAN CORPUSCULAR HGB CONC 33 G/DL (32-36); MEAN CORPUSCULAR VOLUME 93 FL (80-99); MEAN PLATELET VOLUME 9.6 FL (7.4-10.4); MONOCYTES # (AUTO) 0.5 X 10^3 (0.0-1.0); MONOCYTES % (AUTO) 4 % (0-12); NEUTROPHILS # (AUTO) 11.4 X 10^3 (1.8-7.8); NEUTROPHILS % (AUTO) 87 % (42-75); PLATELET COUNT 268 10^3/uL (130-400); RED CELL DISTRIBUTION WIDTH 12.8 % (10.0-14.5)
[2019-02-01 03:54] LABS: ABG BASE EXCESS 5.4 MMOL/L (-2.5-2.5); ABG OXYGEN SATURATION 97 % (94-100); ABG PCO2 46 MMHG (35-45); ABG PH 7.42 (7.37-7.43); ABG PO2 82 MMHG (79-93); ABG TCO2 31.3 MMOL/L (21.0-31.0)
[2019-02-01 03:59] LABS: ALLENS TEST ARTLINE; INSPIRED O2 21%; PATIENT TEMP 97.9; VENTILATOR YES
[2019-02-01 04:14] LABS: BUN/CREATININE RATIO 21; CALCIUM 9.3 MG/DL (8.5-10.1); CARBON DIOXIDE 29 MMOL/L (21-32); CHLORIDE 104 MMOL/L (98-107); CREATININE SERUM 0.76 MG/DL (0.60-1.30); GFR ESTIMATED > 60; GLUCOSE 155 MG/DL (70-105); PHOSPHORUS 3.8 MG/DL (2.3-4.7); POTASSIUM 3.8 MMOL/L (3.6-5.0); SODIUM 146 MMOL/L (135-145)
[2019-02-01] MEDS ORDERED: MIDAZOLAM 5 MG/5 ML (VERSED) VIAL ONE (05:01)
[2019-02-01] MEDS ORDERED: fentaNYL INJECTION 100 MCG/2 ML AMP ONE (05:01)
[2019-02-01] MEDS ORDERED: NS (IVPB) 100 ML ONE (05:08)
[2019-02-01] MEDS ORDERED: fentaNYL (OMNICELL DRIP KIT ONLY) 250 MCG/5 ML AMP ONE (05:08)
--- NOTE | 2019-02-01 05:19 | Pulmonary Progress Note ---
Subjective Time Seen by a Provider: 06:45 Subjective/Events-last exam PT is in acute respiratory distress with accessory muscle use. Pt was switched to SPont mode last night per EICU. Diprivan gtt is going at 40mcg/kg/min. Sepsis Event Evaluation Height, Weight, BMI Height: 5'6.00" Weight: 135lbs. 0.0oz. 61.513233bg; 21.8 BMI Method:Stated Exam Exam Vital Signs Date Time Temp Pulse Resp B/P (MAP) Pulse Ox O2 Delivery O2 Flow Rate FiO2 02/01/19 04:00 Mechanical Ventilator 21 02/01/19 03:00 56 18 135/65 (88) 97 Mechanical Ventilator 21.00 02/01/19 02:56 57 19 97 30 02/01/19 02:00 104 21 180/94 (122) 96 Mechanical Ventilator 21.00 02/01/19 01:25 99 19 99 30 02/01/19 01:00 104 02/01/19 01:00 104 24 187/103 (131) 98 Mechanical Ventilator 21.00 02/01/19 00:00 Mechanical Ventilator 30 02/01/19 00:00 82 12 157/78 (104) 97 Mechanical Ventilator 21.00 01/31/19 23:19 99.1 184/89 01/31/19 23:00 82 14 159/78 (105) 96 Mechanical Ventilator 21.00 01/31/19 22:45 82 19 96 30 01/31/19 22:00 88 12 143/76 (98) 97 Mechanical Ventilator 21.00 01/31/19 21:00 92 30 130/64 (86) 96 Mechanical Ventilator 21.00 01/31/19 20:00 Mechanical Ventilator 30 01/31/19 20:00 98.4 01/31/19 20:00 87 15 139/75 (96) 96 Mechanical Ventilator 21.00 01/31/19 19:00 84 33 144/78 (100) 98 Mechanical Ventilator 21.00 01/31/19 19:00 84 01/31/19 18:59 80 19 98 30 01/31/19 18:00 75 20 85/50 (62) 97 Mechanical Ventilator 21.00 01/31/19 17:45 80 01/31/19 17:00 93 23 90/51 (64) 92 Mechanical Ventilator 21.00 01/31/19 16:00 85 96/69 (78) Mechanical Ventilator 21.00 01/31/19 16:00 97 Mechanical Ventilator 30.00 01/31/19 15:55 84 18 99 35 I & O 02/01/19 07:00 Intake Total 0 ml Output Total 625 ml Balance -625 ml Height & Weight Height: 5'6.00" Weight: 135lbs. 0.0oz. 61.538275ho; 21.8 BMI Method:Stated General Appearance: Cachetic, Severe Distress, Other (Severe respiratory distress pt is awake on 40mcg of fentanyl ) HEENT: PERRL/EOMI, Pharynx Normal Neck: Full Range of Motion, Supple, Other (ET tube in place ) Respiratory: Accessory Muscle Use, Decreased Breath Sounds, Respiratory Distress Cardiovascular: Regular Rate, Rhythm, No Edema, No JVD Capillary Refill: Less Than 3 Seconds Gastrointestinal: normal bowel sounds, non tender, soft, no organomegaly, no pulsatile mass Extremity: Normal Capillary Refill, Normal Inspection Skin: Normal Color, Warm/Dry Results Lab Laboratory Tests 01/31/19 16:55 02/01/19 03:45 Assessment/Plan Assessment/Plan Acute on chronic respiratory failure -Continue vent care -Pt was placed on Spont mode ventilation per ICU PS4 and PEEP of 10 at 01:23. PS was increased to 8 at 02:05. -This morning upon my arrival pt was in acute respiratory distress with accessory muscle use. -Diprivan was increased 40mcg/kg/min at 01:00 from 30mcg/kg/min. -Secondary to acute respiratory distress I switched pt back to AC mode and added Fentanyl gtt. Will check ABG in 1 hr. -FI02 currently 100% and increased PEEP required -CXR - reviewed. check a CT chest with contrast. -Propofol -Check ABG, labs and CXR COPDAE -SVNS Q 4 -Solumedrol 40mg IV Q 6 Very severe COPD/emphysema prognosis is guarded. -Ventilator weaning maybe a challenge. -I strongly recommend no CODE blue status. Will continue to try to wean ventilator. If pt is extubated strong consideration should be made for no reintubation. -Will consult hospice for education and to help communicate with family. DVT/GI PPX -Lovenox -Protonix CAIT PANG DO Feb 01, 2019 05:19
[2019-02-01] MEDS: PROPOFOL DRIP (ICU) 100 ML IV SCH ×2 (05:25→19:59)
[2019-02-01] MEDS: LACTATED RINGERS 1,000 ML IV SCH ×3 (05:26→18:27)
[2019-02-01] MEDS: fentaNYL INJECTION 1,250 MCG in NS (IVPB) 250 ML IV SCH (05:40)
[2019-02-01] MEDS ORDERED: fentaNYL INJECTION 100 MCG/2 ML AMP IVP ONE (05:45)
[2019-02-01] MEDS ORDERED: MIDAZOLAM 5 MG/5 ML (VERSED) VIAL IVP ONE (05:45)
[2019-02-01 06:28] LABS: ABG BASE EXCESS 5.1 MMOL/L (-2.5-2.5); ABG OXYGEN SATURATION 100 % (94-100); ABG PCO2 44 MMHG (35-45); ABG PH 7.44 (7.37-7.43); ABG PO2 249 MMHG (79-93); ABG TCO2 31.2 MMOL/L (21.0-31.0)
[2019-02-01 06:29] LABS: ALLENS TEST ARTLINE; INSPIRED O2 60%; PATIENT TEMP 94.7; VENTILATOR YES
[2019-02-01 06:56] LABS: LYMPHOCYTES % (MANUAL) 8 %; MONOCYTES % (MANUAL) 5 %; NEUTROPHILS % (MANUAL) 87 %
--- NOTE | 2019-02-01 08:20 | NUR ---
Pt sitting up in bed, communicating et answering questions appropriately. Pt motioning et communicating that he would like to be extubated. Dr. Cedeno notified et to bedside. Propofol et fentanyl placed on standby et Dr. Cedeno changed vent setting to spontaneuous. Will draw ABG in 30 minutes
--- NOTE | 2019-02-01 08:35 | Diagnostic Imaging Report ---
PROCEDURE: CT angiography of the chest with contrast. TECHNIQUE: Multiple contiguous axial images were obtained through the chest after uneventful bolus administration of intravenous contrast. 2D reconstructed CTA MIP acquisitions were also performed. Auto Exposure Controls were utilized during the CT exam to meet ALARA standards for radiation dose reduction. INDICATION: Shortness of breath. COMPARISONS: 12/19/2014. No pulmonary embolism is seen. There is severe emphysema with large bulla occupying both lung bases as well as the right apex. Very little normal lung parenchyma remains. There is marked bronchial wall thickening with areas of bronchial obstruction in the left lower lobe with associated tree-in-bud centrilobular nodules in keeping with chronic bronchitis. No pleural effusion, pneumothorax, edema or pneumonia. Heart is normal in size. No pericardial effusion. Aorta is normal in caliber. No axillary, supraclavicular or mediastinal lymphadenopathy. Gastric tube is present. The patient is intubated. There are multiple calcified mediastinal lymph nodes. Limited views of the upper abdomen demonstrate an extrarenal pelvis in the left kidney and old granulomatous disease in the spleen. There are no suspicious osseous lesions. IMPRESSION: 1. No pulmonary embolism. 2. Severe emphysema with large bullae in the lung bases and right apex. 3. Severe chronic bronchitis. Dictated by: Dictated on workstation # [id number]
[2019-02-01 08:59] LABS: ABG BASE EXCESS 8.4 MMOL/L (-2.5-2.5); ABG OXYGEN SATURATION 96 % (94-100); ABG PCO2 49 MMHG (35-45); ABG PH 7.44 (7.37-7.43); ABG PO2 80 MMHG (79-93); ABG TCO2 34.3 MMOL/L (21.0-31.0)
[2019-02-01 09:01] LABS: ALLENS TEST ART LINE; INSPIRED O2 30%; VENTILATOR YES
[2019-02-01 09:02] LABS: PATIENT TEMP 98.6
[2019-02-01] MEDS: PANTOPRAZOLE 40 MG (PROTONIX) VIAL IV SCH (09:48)
--- NOTE | 2019-02-01 09:52 | Diagnostic Imaging Report ---
INDICATION: Respiratory distress, mechanical ventilation. TECHNIQUE: Single view chest 3:59 AM. CORRELATION STUDY: 01/31/2019 FINDINGS: Rather severe bullous emphysematous change about the lung parenchyma are present. Asymmetric lucency of the left lung base likely owing to large bulla. Definitive superimposed infiltrate not demonstrated. Heart size and mediastinum relatively stable. Endotracheal tube projected the trachea above the level of the rubi. Gastric tube tip passed below the left diaphragm. IMPRESSION: 1. Severe bullous emphysematous lung disease. Rather large bulla over the left lung base is present. No definitive superimposed infiltrate. Dictated by: Dictated on workstation # [id number]
--- NOTE | 2019-02-01 10:50 | NUR ---
Pastoral care visit.
[2019-02-01] MEDS ORDERED: CETI10TA17 PO (10:59)
[2019-02-01] MEDS ORDERED: PRD10T PO (10:59)
[2019-02-01] MEDS ORDERED: LISI10TA2 PO (10:59)
[2019-02-01] MEDS ORDERED: MONT10TA24 PO (10:59)
[2019-02-01] MEDS ORDERED: TERA5CAP3 PO (10:59)
[2019-02-01] MEDS ORDERED: TIOT18CA2 INH (10:59)
[2019-02-01] MEDS ORDERED: BUDE10.2 INH (10:59)
[2019-02-01] MEDS ORDERED: CEFU250T80 PO (10:59)
[2019-02-01] MEDS ORDERED: RT-ALBUINH INH (10:59)
[2019-02-01] MEDS ORDERED: IPRA3AMP31 NEB (10:59)
[2019-02-01] MEDS ORDERED: FLUT16SP22 NS (10:59)
[2019-02-01] MEDS ORDERED: BUSP10TA95 PO ×2 (10:59→11:24)
--- NOTE | 2019-02-01 11:25 | NUR ---
SPOKE WITH THE PATIENT ABOUT HIS MEDICATIONS. WE WENT OVER THE EXT MED HX AND HE VERIFIED HOW HE TAKES THEM. HE DOES NOT TAKE ANYTHING OTC AND DOES NOT RECEIVE SAMPLES OF ANY MEDICATIONS.
--- NOTE | 2019-02-01 15:52 | History & Physical-Hospitalist ---
History of Present Illness HPI/Chief Complaint The patient is a 63-year-old white male with severe COPD. He presented to the hospital he yesterday and was noted to be in extreme difficulty with respiration. He is a clinic patient of Dr. Mendoza. He has had long-term and steadily progressive dyspnea. He denies any fever, hemoptysis, significant sputum production. He reports that the distance from his bed to the bathroom is about 10 feet and he has difficulty making the turn a. Date Seen 02/01/19 Time Seen by a Provider: 15:47 Attending Physician Jovon Aguillon MD PCP Raine Da Silva MD Referring Physician Date of Admission Jan 31, 2019 at 15:43 Home Medications & Allergies Home Medications Reviewed patient Home Medication Reconciliation performed by pharmacy medication reconciliations design engineering technician and/or nursing. Patients Allergies have been reviewed. Allergies Allergies Coded Allergies Penicillins (Verified Allergy, Unknown, 11/20/17) codeine (Verified Allergy, Unknown, 11/20/17) ibuprofen (Verified Allergy, Unknown, 11/20/17) latex (Verified Allergy, Unknown, 11/20/17) Uncoded Allergies morphine ( Allergy, Unknown, 11/20/17) Past Oskbhdn-Cfyzgq-Mujhal Hx Past Med/Social Hx: Reviewed Nursing Past Med/Soc Hx Immunizations Up To Date Date of Pneumonia Vaccine: Aug 27, 2011 Date of Influenza Vaccine: Apr 26, 2012 Seasonal Allergies Seasonal Allergies: Yes Past Medical History Genitourinary: Prostate Problems Musculoskeletal: Arthritis Cancer: Melanoma Review of Systems Constitutional: see HPI EENTM: no symptoms reported Respiratory: see HPI, cough, short of breath, wheezing Cardiovascular: no symptoms reported Gastrointestinal: no symptoms reported Genitourinary: no symptoms reported Musculoskeletal: no symptoms reported Skin: no symptoms reported Psychiatric/Neurological: No Symptoms Reported Physical Exam Physical Exam Vital Signs Vital Signs - First Documented 01/31/19 01/31/19 01/31/19 15:55 16:00 20:00 Temp 98.4 Pulse 84 Resp 18 B/P (MAP) 96/69 (78) Pulse Ox 99 O2 Delivery Mechanical Ventilator O2 Flow Rate 30.00 FiO2 35 Capillary Refill : Less Than 3 Seconds Height, Weight, BMI Height: 5'6.00" Weight: 135lbs. 0.0oz. 61.897926ui; 21.8 BMI Method:Stated General Appearance: Moderate Distress Eyes: Bilateral Eye Normal Inspection Neck: Normal Inspection Respiratory: Accessory Muscle Use, Decreased Breath Sounds, Respiratory Distress, Rhonci Cardiovascular: Tachycardia Gastrointestinal: Normal Bowel Sounds, No Organomegaly, No Pulsatile Mass, Non Tender, Soft Back: Normal Inspection Extremity: Normal Capillary Refill, Normal Inspection, Normal Range of Motion, Non Tender, No Calf Tenderness, No Pedal Edema Neurologic/Psychiatric: Alert, Oriented x3, No Motor/Sensory Deficits, Normal Mood/Affect Skin: Normal Color, Warm/Dry Lymphatic: No Adenopathy Results Results/Procedures Labs Laboratory Tests 01/31/19 16:55 02/01/19 03:45 Patient resulted labs reviewed. Assessment/Plan Admission Diagnosis End-stage COPD Admission Status: Inpatient Order (span 2 midnights) Reason for Inpatient Admission: COPD exacerbation. Clinical Quality Measures DVT/VTE Risk/Contraindication: Risk Factor Score Per Nursin RFS Level Per Nursing on Admit: 4+=Very High JOVON AGUILLON MD Feb 01, 2019 15:52
--- NOTE | 2019-02-01 16:26 | NUR ---
PALLIATIVE CARE RN in to see patient due to having received a consult for hospice education. Patient extubated this morning and is now on VAPOTHERM. He is visibly SOB using accessory muscle and appearing uncomfortable in the face. Lots of education on COPD and the disease process as well as on Hospice and its benefit. He reports that his daughter will be here tomorrow and he would like to discuss the possibility of moving to be with her in [facility] on Hospice. He gets tearful when thinking about "how will I get there" . Explained to him that he needs to focus on getting as well as he can and that tomorrow we would begin the process of figuring all the out.
[2019-02-01] MEDS: ENOXAPARIN 40 MG/0.4 ML (LOVENOX) SYR SC SCH (16:42)
--- NOTE | 2019-02-01 18:28 | NUR ---
Pt yelling, "Help!". This RN into room et noted blood et rt radial art line removed. Pressure deep above site [id number]. Bleeding ceased, no hematoma noted. 4x4 et tegaderm placed over puncture site. Pt sitting up in bed, anxous about situation. Pt remains on vapotherm et sating 96%. STayed et spoke with pt until he was able to calm down. RT notified pt would like RT tx.
--- NOTE | 2019-02-01 20:00 | NUR ---
This RN notified EICU related to patient complaining of shortness of breath, blood pressure 170s/100s, and is very anxious. States "help me, you gotta do something". Dr. Lopez of EICU gave orders to start precedex and titrate as needed for the anxiety and to help relax the patient. Will continue to monitor.
[2019-02-01] MEDS ORDERED: DEXMEDETOMIDINE INJECTION 1,000 MCG in NS (IVPB) 250 ML IV SCH (20:15)
[2019-02-01] MEDS ORDERED: NS (IVPB) 50 ML ONE (20:25)
[2019-02-01] MEDS: DEXMEDETOMIDINE INJECTION 200 MCG in NS (IVPB) 50 ML IV SCH (20:30)
[2019-02-02] VITALS (23 sets, daily range): BP systolic 115–192; BP diastolic 74–121
[2019-02-02] MEDS: methylPREDNISolone 40 MG/ML (Solu-MEDROL) VIAL IV SCH ×4 (00:10→18:43)
[2019-02-02] MEDS: RT-ALBUTEROL/IPRATROPIUM 3 ML (DUONEB) VIAL INH SCH ×8 (00:15→22:36)
[2019-02-02] MEDS: LACTATED RINGERS 1,000 ML IV SCH (01:24)
--- NOTE | 2019-02-02 01:45 | NUR ---
Patient is complaining of shortness of breath, oxygen saturations are 87-88%, crackles noted when breath sounds are auscultated. RT at bedside to give breathing treatment. EICU notified and orders received to d/c IVF and given 20mg lasix IV. Will continue to monitor.
[2019-02-02] MEDS ORDERED: FUROSEMIDE 40 MG/4 ML INJ (LASIX) ONE (01:56)
[2019-02-02] MEDS ORDERED: FUROSEMIDE 40 MG/4 ML INJ (LASIX) IVP ONE (02:15)
[2019-02-02 03:56] LABS: BASOPHILS % (AUTO) 0 % (0-10); EOSINOPHILS % (AUTO) 0 % (0-10); HEMATOCRIT 40 % (40-54); HEMOGLOBIN 13.4 G/DL (13.3-17.7); LYMPHOCYTES # (AUTO) 1.1 X 10^3 (1.0-4.0); LYMPHOCYTES % (AUTO) 5 % (12-44); MEAN CORPUSCULAR HEMOGLOBIN 31 PG (25-34); MEAN CORPUSCULAR HGB CONC 33 G/DL (32-36); MEAN CORPUSCULAR VOLUME 92 FL (80-99); MEAN PLATELET VOLUME 9.5 FL (7.4-10.4); MONOCYTES # (AUTO) 0.9 X 10^3 (0.0-1.0); MONOCYTES % (AUTO) 4 % (0-12); NEUTROPHILS # (AUTO) 19.3 X 10^3 (1.8-7.8); NEUTROPHILS % (AUTO) 91 % (42-75); PLATELET COUNT 289 10^3/uL (130-400); RED CELL DISTRIBUTION WIDTH 12.9 % (10.0-14.5); WHITE BLOOD COUNT 21.2 10^3/uL (4.3-11.0)
[2019-02-02 04:13] LABS: BUN/CREATININE RATIO 28; CALCIUM 9.4 MG/DL (8.5-10.1); CARBON DIOXIDE 27 MMOL/L (21-32); CHLORIDE 100 MMOL/L (98-107); CREATININE SERUM 0.75 MG/DL (0.60-1.30); GFR ESTIMATED > 60; GLUCOSE 127 MG/DL (70-105); POTASSIUM 3.8 MMOL/L (3.6-5.0); SODIUM 140 MMOL/L (135-145)
[2019-02-02 05:17] LABS: LYMPHOCYTES % (MANUAL) 5 %; MONOCYTES % (MANUAL) 2 %; NEUTROPHILS % (MANUAL) 93 %
[2019-02-02] MEDS: fentaNYL INJECTION 1,250 MCG in NS (IVPB) 250 ML IV SCH (05:31)
[2019-02-02] MEDS ORDERED: ONDANSETRON 4 MG/2 ML (SDV) Z0FRAN IVP PRN (06:15)
--- NOTE | 2019-02-02 06:24 | NUR ---
PATIENT STATES HE GETS A BETTER BREATHING TREATMENT WHEN IT IS GIVEN VIA MASK THAN WHEN IT IS GIVEN VIA INLINE WITH THE VAPOTHERM. PATIENT WAS SOA WHEN RT ENTERED THE PATIENTS ROOM. HE APPEARED MORE RELAXED AFTER SVN WAS GIVEN. PATIENT IS ON THE VAPOTHERM AT 35 L AND 30%. HIS B/P IS 166/109
--- NOTE | 2019-02-02 06:26 | Pulmonary Progress Note ---
Subjective Time Seen by a Provider: 06:26 Subjective/Events-last exam Pt had episode of acute respiratory distress last night and is currently on precedex gtt and Vapotherm. Sepsis Event Evaluation Height, Weight, BMI Height: 5'6.00" Weight: 135lbs. 0.0oz. 61.244636md; 21.8 BMI Method:Stated Exam Exam Vital Signs Date Time Temp Pulse Resp B/P (MAP) Pulse Ox O2 Delivery O2 Flow Rate FiO2 02/02/19 04:00 Vapotherm 40.00 60 02/02/19 04:00 96.6 02/02/19 03:00 78 21 152/100 (117) 99 Vapotherm 40.00 40.00 02/02/19 02:00 112 38 192/109 (136) 95 Vapotherm 40.00 40.00 02/02/19 01:56 96 Vapotherm 40.00 40 02/02/19 01:00 99 17 180/121 (140) 95 Vapotherm 40.00 40.00 02/02/19 01:00 99 02/02/19 00:16 93 Vapotherm 40.00 30 02/02/19 00:00 77 26 149/99 (116) 93 Vapotherm 40.00 40.00 02/02/19 00:00 97.8 02/02/19 00:00 Vapotherm 40.00 60 02/01/19 23:00 69 22 155/84 (107) 96 Vapotherm 40.00 40.00 02/01/19 22:01 98 Vapotherm 40.00 40 02/01/19 22:00 55 10 137/80 (99) 98 Vapotherm 40.00 40.00 02/01/19 21:00 88 35 148/120 (129) 98 Vapotherm 60.00 40.00 02/01/19 20:00 96.2 02/01/19 20:00 105 17 187/118 (141) 97 Vapotherm 60.00 40.00 02/01/19 19:55 Vapotherm 40.00 60 02/01/19 19:39 98 22 183/109 (133) Vapotherm 60.00 40.00 02/01/19 19:00 92 15 181/126 (144) 95 Vapotherm 60.00 40.00 7/9/19 19:00 92 02/01/19 18:31 96 Vapotherm 40.00 50 02/01/19 18:00 106 26 179/104 (129) 94 Vapotherm 70.00 40.00 02/01/19 17:00 100 11 174/77 (109) 96 Vapotherm 70.00 40.00 02/01/19 16:00 Vapotherm 40.00 60 02/01/19 16:00 93 19 157/70 (99) 97 Vapotherm 60.00 40.00 02/01/19 16:00 98.6 02/01/19 15:50 Vapotherm 60.00 40.00 02/01/19 15:00 96 27 176/77 (110) 93 Nasal Cannula 3.00 02/01/19 14:00 86 15 170/69 (102) 95 Nasal Cannula 3.00 02/01/19 13:39 93 Nasal Cannula 3.00 02/01/19 13:00 85 11 162/74 (103) 92 Nasal Cannula 3.00 02/01/19 12:37 Nasal Cannula 3.00 02/01/19 12:33 80 02/01/19 12:00 Nasal Cannula 3.00 02/01/19 12:00 98.7 02/01/19 12:00 76 16 171/69 (103) 94 Nasal Cannula 5.00 02/01/19 11:01 97 Vapotherm 40.00 30 02/01/19 11:00 93 12 179/78 (111) 94 Nasal Cannula 5.00 02/01/19 10:00 89 14 172/77 (108) 95 Nasal Cannula 5.00 02/01/19 09:59 95 Nasal Cannula 5.00 02/01/19 09:35 Nasal Cannula 5.00 02/01/19 09:00 95 17 125/60 (81) 94 Mechanical Ventilator 60.00 02/01/19 08:01 96.4 02/01/19 08:00 89 19 145/71 (95) 98 Mechanical Ventilator 60.00 02/01/19 07:56 Mechanical Ventilator 40 02/01/19 07:26 59 18 100 50 02/01/19 07:00 57 137/81 (99) Mechanical Ventilator 60.00 02/01/19 07:00 64 I & O 02/02/19 07:00 Intake Total 3315 ml Output Total 2825 ml Balance 490 ml Height & Weight Height: 5'6.00" Weight: 135lbs. 0.0oz. 61.606053xw; 21.8 BMI Method:Stated General Appearance: Moderate Distress HEENT: PERRL/EOMI, Pharynx Normal Neck: Normal Inspection Respiratory: Accessory Muscle Use, Decreased Breath Sounds, Respiratory Distress, Wheezing Cardiovascular: Tachycardia Capillary Refill: Less Than 3 Seconds Gastrointestinal: normal bowel sounds, non tender, soft, no organomegaly, no p ulsatile mass Extremity: Normal Capillary Refill, Normal Inspection, Normal Range of Motion, Non Tender, No Calf Tenderness, No Pedal Edema Neurologic/Psychiatric: Alert, Oriented x3, No Motor/Sensory Deficits, Normal Mood/Affect Skin: Normal Color, Warm/Dry Lymphatic: No Adenopathy Results Lab Laboratory Tests 01/31/19 16:55 02/01/19 03:45 02/02/19 03:40 Assessment/Plan Assessment/Plan Acute on chronic respiratory failure -Pt extubated yesterday -He developed acute distress last night -Daughter at bedside. anxiety/air hunger -Currently on Precedex -Pt has a listed allergy to morphine however upon questioning he states it just made him itchy. This was probably a side effect with histamine release from morphine. Pt and family is ok with trying morphine and monitor close for anaphylactic reaction. prognosis is guarded. COPDAE -SVNS Q 4 -Solumedrol 40mg IV Q 6 -Trial morphine low dose and monitor Very severe COPD/emphysema with severe air hunger DVT/GI PPX -Lovenox -Protonix -Long discussion about current medical condition and prognosis. Patient and daughter would like more information on hospice care. They would like to go back to [place] with possible hospice. propulsion engineer and SW consulted. Pt and daughter agree No code, no chest compressions however they are ok with short term ventilation. 60 min spent with patient, family and medical staff regarding pt's critical condition. Critical Care: Critically Ill Patient Time spent with patient (mins): 60 CAIT PANG DO Feb 02, 2019 06:26
[2019-02-02] MEDS: morphine INJ 4 MG/ML 1 ML (VIAL/SYRINGE) IVP PRN ×7 (07:01→22:14)
[2019-02-02] MEDS: MONTELUKAST 10 MG (SINGULAIR) TAB PO SCH (07:43)
[2019-02-02] MEDS: PANTOPRAZOLE 40 MG (PROTONIX) VIAL IV SCH (07:43)
[2019-02-02] MEDS: lisINopril 10 MG (PRINIVIL) TABLET PO SCH (07:43)
--- NOTE | 2019-02-02 09:14 | Diagnostic Imaging Report ---
Indication: Respiratory distress, post extubation. Time of exam: 3:32 AM Correlation is made with prior study one day earlier. Severe bullous lung disease is again seen with large bulla within the left lung base, similar to prior exam. There is some residual infiltrate or atelectasis in the left base. No pneumothorax is seen. ET tube has been removed. Impression: Bullous lung disease with some residual atelectasis or infiltrate left base. Dictated by: Dictated on workstation # [id number]
[2019-02-02] MEDS ORDERED: RT-ALBUTEROL/IPRATROPIUM 3 ML (DUONEB) VIAL INH PRN ×2 (10:00→11:15)
--- NOTE | 2019-02-02 10:51 | Progress Note - Hospitalist ---
Subjective HPI/CC On Admission Date Seen by Provider: Feb 02, 2019 Time Seen by Provider: 10:00 The patient is a 63-year-old white male with severe COPD. He presented to the hospital he yesterday and was noted to be in extreme difficulty with respiration. He is a clinic patient of Dr. Mendoza. He has had long-term and steadily progressive dyspnea. He denies any fever, hemoptysis, significant sputum production. He reports that the distance from his bed to the bathroom is about 10 feet and he has difficulty making the turn a. Subjective/Events-last exam Pt having significant SOB after he was extubated CT Scan of the chest shows severe COPD and blebs from emphysema White count is 21,000 Daughter wants him to go back to [place] five hours away on hospice, unsure if that is going to be reasonable He is on Vapotherm Pt appears to be in respiratory distress Review of Systems Pulmonary: Dyspnea Objective Exam Vital Signs Vital Signs Date Time Temp Pulse Resp B/P (MAP) Pulse Ox O2 Delivery O2 Flow Rate FiO2 02/02/19 18:42 94 Vapotherm 10.00 40 02/02/19 18:00 82 18 159/108 (125) 02/02/19 16:00 98.2 Capillary Refill : Less Than 3 Seconds General Appearance: Anxious, Chronically ill, Moderate Distress, Thin HEENT: PERRL/EOMI, Pharynx Normal Neck: Normal Inspection Respiratory: Accessory Muscle Use, Decreased Breath Sounds, Respiratory Distress, Wheezing Cardiovascular: Tachycardia Gastrointestinal: Normal Bowel Sounds, No Organomegaly, No Pulsatile Mass, Non Tender, Soft Back: Normal Inspection Extremity: Normal Capillary Refill, Normal Inspection, Normal Range of Motion, Non Tender, No Calf Tenderness, No Pedal Edema Neurologic/Psychiatric: Alert, Oriented x3, No Motor/Sensory Deficits, Normal Mood/Affect Skin: Normal Color, Warm/Dry Lymphatic: No Adenopathy Results/Procedures Lab Laboratory Tests 02/02/19 03:40 Patient resulted labs reviewed. Assessment/Plan Assessment and Plan Assess & Plan/Chief Complaint Assessment: Acute respiratory insufficiency Severe COPD Plan: Poor prognosis Hospice End of life Critical Care Critically Ill Patient Diagnosis/Problems Diagnosis/Problems (1) Respiratory failure Status: Acute Qualifiers: Chronicity: unspecified Respiratory failure complication: unspecified wh ether with hypoxia or hypercapnia Qualified Codes: J96.90 - Respiratory failu re, unspecified, unspecified whether with hypoxia or hypercapnia (2) COPD (chronic obstructive pulmonary disease) Qualifiers: COPD type: unspecified COPD Qualified Codes: J44.9 - Chronic obstructive pulmonary disease, unspecified (3) Former smoker Status: Chronic (4) Anxiety Status: Chronic (5) Lung bullae Status: Chronic Clinical Quality Measures DVT/VTE Risk/Contraindication: Risk Factor Score Per Nursin RFS Level Per Nursing on Admit: 4+=Very High JUNIOR SILVERIO DO Feb 02, 2019 10:51
--- NOTE | 2019-02-02 11:10 | NUR ---
PALLIATIVE CARE RN met with patient and his daughter and earlier. We are in the process of arranging Hospice for the patient post discharge but have a couple hurdles to leap over. Firstly, patient is planning to move in with daughter who lives in [place], [place]. I am working with [facility] hospice due to their availability in both locations for arrangement of portable concentrator. I spoke with [facility] in [place] and have faxed clinical information to [facility] in [place]. I am awaiting a call from admission coordinator in [place] to return my call. Secondly, patient has [facility] through [place] and this will need to be transitioned to [facility] post move. Hospice SS can assist the daughter in this effort. I am told he also has [employer] benefits, which hospice can also look into for them. .
--- NOTE | 2019-02-02 13:45 | NUR ---
Pastoral care visit, w pt and his brother.
[2019-02-02] MEDS: DEXMEDETOMIDINE INJECTION 200 MCG in NS (IVPB) 50 ML IV SCH ×2 (14:55→19:00)
[2019-02-02] MEDS: ENOXAPARIN 40 MG/0.4 ML (LOVENOX) SYR SC SCH (16:17)
[2019-02-03] VITALS (14 sets, daily range): BP systolic 120–172; BP diastolic 75–109
[2019-02-03] MEDS: RT-ALBUTEROL/IPRATROPIUM 3 ML (DUONEB) VIAL INH SCH ×7 (00:13→22:37)
[2019-02-03] MEDS: morphine INJ 4 MG/ML 1 ML (VIAL/SYRINGE) IVP PRN ×4 (00:36→19:44)
[2019-02-03 03:50] LABS: BASOPHILS % (AUTO) 0 % (0-10); EOSINOPHILS % (AUTO) 0 % (0-10); HEMATOCRIT 39 % (40-54); LYMPHOCYTES # (AUTO) 0.8 X 10^3 (1.0-4.0); LYMPHOCYTES % (AUTO) 5 % (12-44); MEAN CORPUSCULAR HEMOGLOBIN 30 PG (25-34); MEAN CORPUSCULAR HGB CONC 33 G/DL (32-36); MEAN CORPUSCULAR VOLUME 91 FL (80-99); MONOCYTES # (AUTO) 0.7 X 10^3 (0.0-1.0); MONOCYTES % (AUTO) 4 % (0-12); NEUTROPHILS # (AUTO) 16.1 X 10^3 (1.8-7.8); NEUTROPHILS % (AUTO) 92 % (42-75); PLATELET COUNT 262 10^3/uL (130-400); RED CELL DISTRIBUTION WIDTH 12.8 % (10.0-14.5); WHITE BLOOD COUNT 17.6 10^3/uL (4.3-11.0)
[2019-02-03 04:04] LABS: BUN/CREATININE RATIO 35; CALCIUM 9.1 MG/DL (8.5-10.1); CARBON DIOXIDE 28 MMOL/L (21-32); CHLORIDE 100 MMOL/L (98-107); CREATININE SERUM 0.72 MG/DL (0.60-1.30); GFR ESTIMATED > 60; GLUCOSE 147 MG/DL (70-105); MAGNESIUM 2.6 MG/DL (1.8-2.4); POTASSIUM 4.1 MMOL/L (3.6-5.0); SODIUM 138 MMOL/L (135-145)
[2019-02-03] MEDS ORDERED: morphine INJ 4 MG/ML 1 ML (VIAL/SYRINGE) ONE (05:56)
--- NOTE | 2019-02-03 06:09 | Pulmonary Progress Note ---
Subjective Time Seen by a Provider: 06:09 Subjective/Events-last exam Daughter at bedside. Sepsis Event Evaluation Height, Weight, BMI Height: 5'6.00" Weight: 135lbs. 0.0oz. 61.830300ib; 21.8 BMI Method:Stated Exam Exam Vital Signs Date Time Temp Pulse Resp B/P (MAP) Pulse Ox O2 Delivery O2 Flow Rate FiO2 02/03/19 04:00 97.6 74 14 155/75 (101) 90 Vapotherm 10.00 02/03/19 04:00 Vapotherm 10.00 40 02/03/19 04:00 97.6 02/03/19 03:09 96 Vapotherm 10.00 40 02/03/19 03:00 52 14 155/97 (116) 94 Vapotherm 40.00 10.00 02/03/19 02:00 58 17 150/91 (110) 98 Vapotherm 40.00 10.00 02/03/19 01:00 106 02/03/19 01:00 93 17 154/100 (118) 95 Vapotherm 40.00 10.00 02/03/19 00:11 88 Vapotherm 10.00 50 02/03/19 00:00 Vapotherm 10.00 35 02/03/19 00:00 84 16 120/87 (98) 94 Vapotherm 40.00 10.00 02/02/19 23:59 97.5 02/02/19 23:00 90 21 127/88 (101) 91 Vapotherm 40.00 10.00 02/02/19 22:35 94 Vapotherm 10.00 40 02/02/19 22:15 Vapotherm 40.00 10.00 02/02/19 22:00 86 13 118/74 (89) 89 Vapotherm 40.00 20.00 02/02/19 21:00 73 18 115/80 (92) 90 Vapotherm 40.00 20.00 02/02/19 21:00 Vapotherm 35.00 10.00 02/02/19 20:00 Vapotherm 10.00 35 02/02/19 19:45 98.2 86 18 151/97 (115) 86 Vapotherm 35.00 10.00 02/02/19 19:00 98 02/02/19 19:00 107 15 151/97 (115) 89 Vapotherm 40.00 20.00 02/02/19 18:42 94 Vapotherm 10.00 40 02/02/19 18:00 82 18 159/108 (125) 92 Vapotherm 40.00 20.00 02/02/19 17:31 94 Vapotherm 20.00 40 02/02/19 17:00 81 18 Vapotherm 40.00 20.00 02/02/19 16:00 85 12 142/103 (116) Vapotherm 40.00 20.00 02/02/19 16:00 Vapotherm 20.00 40 02/02/19 16:00 98.2 02/02/19 15:00 96 20 152/99 (116) 97 Vapotherm 40.00 20.00 02/02/19 14:43 96 Vapotherm 30.00 40 02/02/19 14:00 104 16 169/105 (126) 93 Vapotherm 40.00 35.00 02/02/19 13:00 87 02/02/19 13:00 87 17 151/103 (119) 93 Vapotherm 40.00 35.00 02/02/19 12:57 93 Vapotherm 30.00 40 02/02/19 12:00 Vapotherm 30.00 40 02/02/19 12:00 98.2 02/02/19 12:00 77 18 138/96 (110) Vapotherm 40.00 35.00 02/02/19 11:00 75 13 153/105 (121) Vapotherm 40.00 35.00 02/02/19 10:10 91 Vapotherm 35.00 40 02/02/19 10:00 106 18 139/118 (125) Vapotherm 35.00 35.00 02/02/19 09:00 120 24 138/100 (113) 93 Vapotherm 35.00 35.00 02/02/19 08:00 104 17 170/107 (128) 93 Vapotherm 35.00 35.00 02/02/19 08:00 Vapotherm 30.00 35 02/02/19 07:00 98 02/02/19 07:00 104 20 172/103 (126) 90 Vapotherm 40.00 40.00 02/02/19 06:16 92 Vapotherm 35.00 30 I & O 02/03/19 07:00 Intake Total 850 ml Output Total 1275 ml Balance -425 ml Height & Weight Height: 5'6.00" Weight: 135lbs. 0.0oz. 61.237398sj; 21.8 BMI Method:Stated General Appearance: Anxious, Chronically ill, Mild Distress, Thin HEENT: PERRL/EOMI, Pharynx Normal Neck: Normal Inspection Respiratory: Accessory Muscle Use, Decreased Breath Sounds, Respiratory Distress, Wheezing Cardiovascular: Tachycardia Capillary Refill: Less Than 3 Seconds Gastrointestinal: normal bowel sounds, non tender, soft, no organomegaly, no pulsatile mass Extremity: Normal Capillary Refill, Normal Inspection, Normal Range of Motion, Non Tender, No Calf Tenderness, No Pedal Edema Neurologic/Psychiatric: Alert, Oriented x3, No Motor/Sensory Deficits, Normal Mood/Affect Skin: Normal Color, Warm/Dry Lymphatic: No Adenopathy Results Lab Laboratory Tests 02/02/19 03:40 02/03/19 03:20 Assessment/Plan Assessment/Plan Acute on chronic respiratory failure -Pt is doing off vent. Currently on Vapotherm -Titrate to regular NC COPDAE -SVNS Q 4 -Solumedrol 40mg IV Q 6 -- Change to prednisone taper Very severe COPD/emphysema Anxiety/air hunger -Morphine 1-2 mg IV Q 4 for air hunger -Start Paxil -Start Risperdal 1mg BID -D/C Precedex Plan is for discharge with hospice tomorrow. CAIT PANG DO Feb 03, 2019 06:09
[2019-02-03] MEDS: methylPREDNISolone 40 MG/ML (Solu-MEDROL) VIAL IV SCH ×2 (06:12)
[2019-02-03] MEDS: risperiDONE 1 MG (RisperDAL) TAB PO SCH ×2 (06:12→19:43)
[2019-02-03] MEDS: PANTOPRAZOLE 40 MG (PROTONIX) VIAL IV SCH (07:58)
[2019-02-03] MEDS: predniSONE 10 MG TAB PO SCH (08:00)
[2019-02-03] MEDS: MONTELUKAST 10 MG (SINGULAIR) TAB PO SCH (08:00)
[2019-02-03] MEDS: PARoxetine 20 MG (PAXIL) TAB PO SCH (08:00)
[2019-02-03] MEDS: lisINopril 10 MG (PRINIVIL) TABLET PO SCH (08:00)
--- NOTE | 2019-02-03 09:38 | Diagnostic Imaging Report ---
EXAMINATION: Portable erect AP chest at 3:52 AM. INDICATION: Respiratory distress. FINDINGS: The heart size is within normal limits and stable when compared to 02/02/2019. The bullous disease involving both lung bases, particularly the left lower lobe, and the atelectasis/infiltrate in the left lung base seen previously are again evident and no different. The other chronic pulmonary changes seen on the prior study are stable as well. There is no new area of pneumonia and there is no sign of failure. The mediastinum is not widened. The osseous structures are intact. IMPRESSION: Stable chest. There is severe chronic pulmonary disease and persistent left lower lobe atelectasis/infiltrate but there is no acute cardiopulmonary abnormality noted. Dictated by: Dictated on workstation # [id number]
--- NOTE | 2019-02-03 10:38 | Progress Note - Hospitalist ---
Subjective HPI/CC On Admission Date Seen by Provider: Feb 03, 2019 Time Seen by Provider: 10:00 The patient is a 63-year-old white male with severe COPD. He presented to the hospital he yesterday and was noted to be in extreme difficulty with respiration. He is a clinic patient of Dr. Mendoza. He has had long-term and steadily progressive dyspnea. He denies any fever, hemoptysis, significant sputum production. He reports that the distance from his bed to the bathroom is about 10 feet and he has difficulty making the turn a. Subjective/Events-last exam Pt will be transferred to fourth floor. Pulmonary status has improved. Remains on oxygen-nasal cannula but off Vapotherm. Discharge planned tomorrow with hospice. Denies any pain. Visitors in the room at time of interview and exam. Review of Systems Pulmonary: Dyspnea Objective Exam Vital Signs Vital Signs Date Time Temp Pulse Resp B/P (MAP) Pulse Ox O2 Delivery O2 Flow Rate FiO2 02/03/19 20:09 98.2 97 20 148/87 (107) 95 Nasal Cannula 5.00 02/03/19 04:00 40 Capillary Refill : Less Than 3 Seconds General Appearance: WD/WN, Anxious, Chronically ill HEENT: PERRL/EOMI, Pharynx Normal Neck: Normal Inspection Respiratory: No Respiratory Distress, Accessory Muscle Use, Decreased Breath Sounds, Wheezing Cardiovascular: Tachycardia Gastrointestinal: Normal Bowel Sounds, No Organomegaly, No Pulsatile Mass, Non Tender, Soft Back: Normal Inspection Extremity: Normal Capillary Refill, Normal Inspection, Normal Range of Motion, Non Tender, No Calf Tenderness, No Pedal Edema Neurologic/Psychiatric: Alert, Oriented x3, No Motor/Sensory Deficits, Normal Mood/Affect Skin: Normal Color, Warm/Dry Lymphatic: No Adenopathy Results/Procedures Lab Laboratory Tests 02/03/19 03:20 Patient resulted labs reviewed. Assessment/Plan Assessment and Plan Assess & Plan/Chief Complaint Assessment: Acute respiratory insufficiency Severe COPD Plan: Poor prognosis Hospice End of life Critical Care Critically Ill Patient Diagnosis/Problems Diagnosis/Problems (1) Respiratory failure Status: Acute Qualifiers: Chronicity: unspecified Respiratory failure complication: unspecified whether with hypoxia or hypercapnia Qualified Codes: J96.90 - Respiratory failure, unspecified, unspecified whether with hypoxia or hypercapnia (2) COPD (chronic obstructive pulmonary disease) Qualifiers: COPD type: unspecified COPD Qualified Codes: J44.9 - Chronic obstructive pulmonary disease, unspecified (3) Former smoker Status: Chronic (4) Anxiety Status: Chronic (5) Lung bullae Status: Chronic Clinical Quality Measures DVT/VTE Risk/Contraindication: Risk Factor Score Per Nursin RFS Level Per Nursing on Admit: 4+=Very High JUNIOR SILVERIO DO Feb 03, 2019 10:38
--- NOTE | 2019-02-03 11:10 | NUR ---
Report given to Aracely, 4th floor RN.
--- NOTE | 2019-02-03 11:10 | NUR ---
REC'D PER BED FROM ICU. SEE ASSESSMENT.
[2019-02-03] MEDS: ALPRAZolam 0.25 MG (XANAX) TAB PO PRN ×2 (11:30→14:59)
--- NOTE | 2019-02-03 11:30 | NUR ---
XANAX 0.25MG PO FOR ANXIETY.
--- NOTE | 2019-02-03 11:58 | NUR ---
Palliative Care RN to room to visit with the patient and the family. Daughter is in the room so I updated her on [facility] and the plan for discharge tomorrow. She has requested that the hospice come to visit with them today between 1 and 2 p.m. when her brother is here because he will be doing the transportation of the patient to [place] where he will reside with his daughter Edwige. Patient is now off of VAPOTHERM and on 5 l NC. He looks good and does not show signs currently of agitation or increased SOB. Will continue to monitor for needs and assistance with the discharge plan to make sure that he has the best transition as possible.
[2019-02-03] MEDS ORDERED: ALPR0.5T PO (14:29)
[2019-02-03] MEDS ORDERED: OXC5T PO (14:29)
--- NOTE | 2019-02-03 14:42 | NUR ---
Pastoral care visit.
--- NOTE | 2019-02-03 15:00 | NUR ---
XANAX 0.25MG PO FOR ANXIETY.
[2019-02-03] MEDS: ENOXAPARIN 40 MG/0.4 ML (LOVENOX) SYR SC SCH (16:54)
[2019-02-04] VITALS: BP 152/88
[2019-02-04] MEDS: RT-ALBUTEROL/IPRATROPIUM 3 ML (DUONEB) VIAL INH SCH ×3 (02:43→10:00)
[2019-02-04 04:00] VITALS: BP 163/107
[2019-02-04] MEDS: ALPRAZolam 0.25 MG (XANAX) TAB PO PRN ×2 (05:32→13:20)
[2019-02-04] MEDS: morphine INJ 4 MG/ML 1 ML (VIAL/SYRINGE) IVP PRN ×2 (05:58→13:21)
[2019-02-04 06:35] LABS: BASOPHILS % (AUTO) 0 % (0-10); EOSINOPHILS % (AUTO) 0 % (0-10); HEMATOCRIT 44 % (40-54); HEMOGLOBIN 14.7 G/DL (13.3-17.7); LYMPHOCYTES # (AUTO) 3.4 X 10^3 (1.0-4.0); LYMPHOCYTES % (AUTO) 15 % (12-44); MEAN CORPUSCULAR HEMOGLOBIN 31 PG (25-34); MEAN CORPUSCULAR HGB CONC 34 G/DL (32-36); MEAN CORPUSCULAR VOLUME 91 FL (80-99); MEAN PLATELET VOLUME 10.2 FL (7.4-10.4); MONOCYTES # (AUTO) 2.4 X 10^3 (0.0-1.0); MONOCYTES % (AUTO) 11 % (0-12); NEUTROPHILS # (AUTO) 16.5 X 10^3 (1.8-7.8); NEUTROPHILS % (AUTO) 74 % (42-75); PLATELET COUNT 320 10^3/uL (130-400); WHITE BLOOD COUNT 22.4 10^3/uL (4.3-11.0)
[2019-02-04 06:57] LABS: BUN/CREATININE RATIO 28; CALCIUM 9.4 MG/DL (8.5-10.1); CARBON DIOXIDE 29 MMOL/L (21-32); CHLORIDE 102 MMOL/L (98-107); CREATININE SERUM 0.76 MG/DL (0.60-1.30); GFR ESTIMATED > 60; GLUCOSE 127 MG/DL (70-105); MAGNESIUM 2.4 MG/DL (1.8-2.4); PHOSPHORUS 2.4 MG/DL (2.3-4.7); POTASSIUM 3.2 MMOL/L (3.6-5.0); SODIUM 143 MMOL/L (135-145)
--- NOTE | 2019-02-04 07:04 | Pulmonary Progress Note ---
Subjective Time Seen by a Provider: 07:03 Subjective/Events-last exam Plan is for discharge with hospice. Sepsis Event Evaluation Height, Weight, BMI Height: 5'6.00" Weight: 135lbs. 0.0oz. 61.109029fa; 21.8 BMI Method:Stated Exam Exam Vital Signs Date Time Temp Pulse Resp B/P (MAP) Pulse Ox O2 Delivery O2 Flow Rate FiO2 02/04/19 06:52 92 High Flow N/C 5.00 02/04/19 04:00 98.8 95 14 163/107 (125) 91 Nasal Cannula 5.00 02/04/19 02:44 93 Nasal Cannula 5.00 02/04/19 00:00 98.9 62 18 152/88 (109) 98 Nasal Cannula 5.00 02/03/19 22:38 94 Nasal Cannula 3 02/03/19 21:18 High Flow N/C 5.00 02/03/19 20:09 98.2 97 20 148/87 (107) 95 Nasal Cannula 5.00 02/03/19 18:56 94 High Flow N/C 3.00 02/03/19 16:13 99.5 90 22 158/88 (111) 94 Nasal Cannula 5.00 02/03/19 16:10 163/91 (115) 02/03/19 14:27 92 High Flow N/C 3.00 02/03/19 12:00 172/90 (117) 02/03/19 11:10 High Flow N/C 5.00 02/03/19 09:47 92 High Flow N/C 4.00 02/03/19 09:00 84 19 137/97 (110) 94 Vapotherm 40.00 10.00 02/03/19 08:00 81 17 165/109 (127) 94 Vapotherm 40.00 10.00 02/03/19 07:00 High Flow N/C 5.00 02/03/19 07:00 70 14 165/109 (127) 94 Vapotherm 40.00 10.00 02/03/19 07:00 70 I & O 02/04/19 07:00 Intake Total 1360 ml Output Total 1500 ml Balance -140 ml Height & Weight Height: 5'6.00" Weight: 135lbs. 0.0oz. 61.668370nm; 21.8 BMI Method:Stated General Appearance: WD/WN, Anxious, Chronically ill HEENT: PERRL/EOMI, Pharynx Normal Neck: Normal Inspection Respiratory: No Respiratory Distress, Accessory Muscle Use, Decreased Breath Sounds, Wheezing Cardiovascular: Tachycardia Capillary Refill: Less Than 3 Seconds Gastrointestinal: normal bowel sounds, non tender, soft, no organomegaly, no pulsatile mass Extremity: Normal Capillary Refill, Normal Inspection, Normal Range of Motion, Non Tender, No Calf Tenderness, No Pedal Edema Neurologic/Psychiatric: Alert, Oriented x3, No Motor/Sensory Deficits, Normal Mood/Affect Skin: Normal Color, Warm/Dry Lymphatic: No Adenopathy Results Lab Laboratory Tests 02/03/19 03:20 02/04/19 06:00 Assessment/Plan Assessment/Plan Acute on chronic respiratory failure - regular NC at 5 liters COPDAE -SVNS Q 4 - prednisone taper Very severe COPD/emphysema Anxiety/air hunger -Morphine 1-2 mg IV Q 4 for air hunger -Paxil - Risperdal 1mg BID Pt is planning on discharging with hospice. [facility] is assisting with oxygen however pt's plan is to go home with daughter in [place]. Will give pt Rx with comfort meds for trip to [place]. Pt will establish with Hospice group once he makes it to [place]. CAIT PANG DO Feb 04, 2019 07:04
[2019-02-04 08:00] VITALS: BP 173/105
--- NOTE | 2019-02-04 08:07 | Diagnostic Imaging Report ---
INDICATION: Respiratory distress. COMPARISON: 02/03/2019. FINDINGS: Stable hyperaerated lung volume. Extensive bullous changes within the left lung base are unchanged. Calcified right basilar pulmonary granuloma is unchanged. No new airspace consolidations. No pleural effusion or pneumothorax. IMPRESSION: 1. Severe COPD without acute process. Dictated by: Dictated on workstation # [id number]
[2019-02-04] MEDS: PANTOPRAZOLE 40 MG (PROTONIX) VIAL IV SCH (08:41)
[2019-02-04] MEDS: MONTELUKAST 10 MG (SINGULAIR) TAB PO SCH (08:42)
[2019-02-04] MEDS: risperiDONE 1 MG (RisperDAL) TAB PO SCH (08:42)
[2019-02-04] MEDS: lisINopril 10 MG (PRINIVIL) TABLET PO SCH (08:42)
[2019-02-04] MEDS: predniSONE 10 MG TAB PO SCH (08:42)
[2019-02-04] MEDS: PARoxetine 20 MG (PAXIL) TAB PO SCH (08:42)
--- NOTE | 2019-02-04 10:15 | NUR ---
PALLIATIVE CARE RN working to arrange safe discharge plan for patient as he intends to leave town and go live with his daughter in [place]. Hanging up with [facility] in [place] who is working with [facility] to make sure patient is covered for the 5+ hour trip to [place]. Currently all parties are updated and awaiting call from [facility] on how to proceed.
--- NOTE | 2019-02-04 10:18 | Discharge Summary ---
Diagnosis/Chief Complaint Date of Admission Jan 31, 2019 at 15:43 Date of Discharge Discharge Date: Feb 04, 2019 Admission Diagnosis End-stage COPD Discharge Diagnosis (1) Respiratory failure Status: Acute (2) COPD (chronic obstructive pulmonary disease) (3) Former smoker Status: Chronic (4) Anxiety Status: Chronic (5) Lung bullae Status: Chronic Discharge Summary Discharge Physical Exam Allergies: Coded Allergies: Penicillins (Verified Allergy, Unknown, 11/20/17) codeine (Verified Allergy, Unknown, 11/20/17) ibuprofen (Verified Allergy, Unknown, 11/20/17) latex (Verified Allergy, Unknown, 11/20/17) Vitals & I&Os Vital Signs Date Time Temp Pulse Resp B/P (MAP) Pulse Ox O2 Delivery O2 Flow Rate FiO2 02/04/19 10:00 93 High Flow N/C 5.00 02/04/19 08:00 98.0 111 20 173/105 (127) 02/03/19 22:38 3 General Appearance: Anxious, Chronically ill, Thin Respiratory: Lungs Clear, Normal Breath Sounds, Decreased Breath Sounds Neurologic/Psychiatric: Alert, Oriented x3, No Motor/Sensory Deficits, Normal Mood/Affect Hospital Course Was the Problem List Reviewed?: Yes Hospital course: Patient had an uneventful hospital course after he was admitted from [facility] primary care provider Dr. Da Silva due to respiratory failure. Patient was intubated and supportive care provided in the ICU along with Dr. Cedeno pulmonary consultation. He was extubated CT scan showed extensive bullae to the extent that there was no recovery potential. He sustained a hospice candidate patient agreed along with daughter and arrangements were made for discharge to hospice and to travel 5 hours away to live with his daughter in the last days of his life. Palliative care management appreciated in this very complex case. Labs (last 24 hrs) Laboratory Tests 02/03/19 16:21: Phosphorus Level 2.9 02/04/19 06:00: Phosphorus Level 2.4, White Blood Count 22.4H, Red Blood Count 4.81, Hemoglobin 14.7, Hematocrit 44, Mean Corpuscular Volume 91, Mean Corpuscular Hemoglobin 31, Mean Corpuscular Hemoglobin Concent 34, Red Cell Distribution Width 13.0, Platelet Count 320, Mean Platelet Volume 10.2, Neutrophils (%) (Auto) 74, Lymphocytes (%) (Auto) 15, Monocytes (%) (Auto) 11, Eosinophils (%) (Auto) 0, Basophils (%) (Auto) 0, Neutrophils # (Auto) 16.5H, Lymphocytes # (Auto) 3.4, Monocytes # (Auto) 2.4H, Eosinophils # (Auto) 0.0, Basophils # (Auto) 0.0, Sodium Level 143, Potassium Level 3.2L, Chloride Level 102, Carbon Dioxide Level 29, Anion Gap 12, Blood Urea Nitrogen 21H, Creatinine 0.76, Estimat Glomerular Filtration Rate > 60, BUN/Creatinine Ratio 28, Glucose Level 127H, Calcium Level 9.4, Magnesium Level 2.4 Microbiology 01/31/19 Blood Culture - Preliminary, Resulted No growth 01/31/19 Gram Stain - Final, Complete 01/31/19 Sputum Culture - Final, Complete Mixed Bacterial Ari[place]na Stenotrophomonas Maltophilia Patient resulted labs reviewed. Pending Labs Laboratory Tests 02/04/19 06:00: White Blood Count 22.4, Red Blood Count 4.81, Hemoglobin 14.7, Hematocrit 44, Mean Corpuscular Volume 91, Mean Corpuscular Hemoglobin 31, Mean Corpuscular Hemoglobin Concent 34, Red Cell Distribution Width 13.0, Platelet Count 320, Mean Platelet Volume 10.2, Neutrophils (%) (Auto) 74, Lymphocytes (%) (Auto) 15, Monocytes (%) (Auto) 11, Eosinophils (%) (Auto) 0, Basophils (%) (Auto) 0, Neutrophils # (Auto) 16.5, Lymphocytes # (Auto) 3.4, Monocytes # (Auto) 2.4, Eosinophils # (Auto) 0.0, Basophils # (Auto) 0.0, Sodium Level 143, Potassium Level 3.2, Chloride Level 102, Carbon Dioxide Level 29, Anion Gap 12, Blood Urea Nitrogen 21, Creatinine 0.76, Estimat Glomerular Filtration Rate > 60, BUN/Creatinine Ratio 28, Glucose Level 127, Calcium Level 9.4, Phosphorus Level 2.4, Magnesium Level 2.4 Discussion & Recommendations Discharge Planning: <30 minutes discharge planning Discharge Home Medications: Active Scripts Active Xanax (Alprazolam) 0.5 Mg Tablet 0.5 Mg PO Q4H Oxyir Tablet (Oxycodone HCl) 5 Mg Tab 5 Mg PO Q4H PRN Reported Buspirone HCl 10 Mg Tablet 10 Mg PO 1200 PRN Terazosin HCl 5 Mg Capsule 5 Mg PO BID Fluticasone Propionate 16 Gm [place].susp 2 Sprays NS DAILY Cetirizine HCl 10 Mg Tablet 10 Mg PO DAILY Buspirone HCl 10 Mg Tablet 10 Mg PO BID Proair Hfa (Albuterol Sulfate) 1 Puff Puff 2 Puff INH Q6H PRN Cefuroxime (Cefuroxime Axetil) 250 Mg Tablet 250 Mg PO BID 5 Days 5 DAY SUPPLY FILLED 01-30-19 Prednisone 10 Mg Tab 40 Mg PO DAILY 4 Days 4 DAY SUPPLY FILLED 01-30-19 TAKES 4 (10MG) TABLETS Lisinopril 10 Mg Tablet 10 Mg PO DAILY Montelukast Sodium 10 Mg Tablet 10 Mg PO DAILY Spiriva (Tiotropium [place]) 1 Inh Aerp 1 Cap INH DAILY Symbicort 160-4.5 Mcg Inhaler (Budesonide/Formoterol Fumarate) 10.2 Gm Hfa .aer.ad 2 Puff INH BID Iprat-Albut 0.5-3(2.5) mg/3 ml (Ipratropium/Albuterol Sulfate) 3 Ml Ampul.neb 3 Ml NEB Q6H PRN Instructions to patient/family Please see electronic discharge instructions given to patient. Clinical Quality Measures DVT/VTE Risk/Contraindication: Risk Factor Score Per Nursin RFS Level Per Nursing on Admit: 4+=Very High Problem Qualifiers (1) Respiratory failure: Chronicity: unspecified Respiratory failure complication: unspecified whether with hypoxia or hypercapnia Qualified Codes: J96.90 - Respiratory failure, unspecified, unspecified whether with hypoxia or hypercapnia (2) COPD (chronic obstructive pulmonary disease): COPD type: unspecified COPD Qualified Codes: J44.9 - Chronic obstructive pulmonary disease, unspecified JUNIOR SILVERIO DO Feb 04, 2019 10:18
--- NOTE | 2019-02-04 11:55 | NUR ---
PALLIATIVE CARE RN to [facility] to update patient and family on behind the scenes activity. Son informed me that he just got a phone call and was informed that the O2 concentrator would be delivered to the hospital. Once this is in place he is ready for discharge. 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 He has everything else that he needs for discharge. Brock will remain in place until he reaches his final destination in [place] so that he is not taxed while using the restroom. Appreciate [facility] and Loni for all their work to make sure that the patient has what he needs for discharge.
[2019-02-04 12:00] VITALS: BP 165/100
--- NOTE | 2019-02-04 13:11 | NUR ---
Report called to Jamel RODRÍGUEZ at [facility] in [place], [place].
== END 2019-02-04 13:51 | disposition hospice, home (50) | DRG 208 ==
LOC: ICU 15:43 → 4TH 02-03 11:07
PROVIDERS: ADMIT Internal Medicine; ATTEND Internal Medicine
PROC: 5A1935Z Respiratory Ventilation, Less than 24 Consecutive Hours (ICD-10-PCS; principal; 2019-01-31)
DX: J96.20 Acute and chronic respiratory failure, unspecified whether with hypoxia or hypercapnia (principal); J43.9 Emphysema, unspecified; J30.2 Other seasonal allergic rhinitis; M19.91 Primary osteoarthritis, unspecified site; N42.9 Disorder of prostate, unspecified; F41.9 Anxiety disorder, unspecified; Z85.820 Personal history of malignant melanoma of skin; Z87.891 Personal history of nicotine dependence
CPT/HCPCS: 36415; 71045; 71275; 80048; 80053; 81000; 82805; 83735; 83880; 84100; 84478; 85007; 85025; 85027; 87040; 87070; 87077; 87186; 87205; 94002; 94640; 94760; 94799